=== PATIENT | male | born 1970 | race Caucasian/White ===

== ENCOUNTER 2020-08-20 13:54 | Inpatient (IN) ==
[2020-08-20] MEDS ORDERED: Piperacillin/Tazobac ADVAN 3.375 GM in NS 0.9% 100 ml BAG 100 ML IVPB ONE (14:23)
[2020-08-20] MEDS ORDERED: fentaNYL 100 mcg/2 ml 50 MCG/ML VIAL ONE (14:54)
[2020-08-20] MEDS ORDERED: Midazolam 10 mg/10 ml VIAL 1 mg/ml 10 ml VIAL (10 mg) ONE (14:54)
[2020-08-20 14:56] LABS: ABS Basophils 0.1 10^3/ul (0-0.2); ABS Lymphocytes 0.4 10^3/ul (1.0-4.8); ABS Monocytes 0.7 10^3/ul (0-0.8); ABS Neutrophils 14.4 10^3/ul (1.5-7.7); Hematocrit 39 % (42-52); Hemoglobin 13.5 g/dL (14.0-18.0); Lymphocyte % 2.6 %; Mean Corpuscular HGB Conc 35 g/dL (31-36); Mean Corpuscular Hemoglobin 35 pg (27-31); Mean Corpuscular Volume 101 fL (80-94); Mean Platelet Volume 10.1 fL (7.4-10.4); Nucleated Red Blood Cells % 0.1; Platelet Count 90 10^3/uL (150-450); Red Blood Count 3.83 10^6 /uL (4.18-5.48); Red Cell Distribution Width 14 % (10-15); White Blood Count 15.6 10^3/uL (3.5-10.8)
[2020-08-20] MEDS ORDERED: diPHENhydraMINE IV 50 MG/ML 1 ml VIAL (BENADRYL) ONE (14:56)
[2020-08-20] MEDS ORDERED: Octreotide Acetate 500 MCG in NS 0.9% 100 ml BAG 100 ML IV ONE (15:00)
[2020-08-20 15:02] LABS: INR 1.49 (0.82-1.09)
[2020-08-20 15:31] LABS: ALT 26 U/L (7-52); Albumin/Globulin Ratio 0.9 (1-3); Alkaline Phosphatase 88 U/L (34-104); BUN/Creatinine Ratio 25.7 (8-20); Blood Urea Nitrogen 28 mg/dL (6-24); CO2 Carbon Dioxide 22 mmol/L (22-32); Calcium 7.8 mg/dL (8.6-10.3); Chloride 111 mmol/L (101-111); EGFR African American 86.6 (>60); EGFR Non-African American 71.6 (>60); Globulin 3.3 g/dL (2-4); Glucose 97 mg/dL (70-100); Lipase 25 U/L (11.0-82.0); Sodium 138 mmol/L (135-145); Total Protein 6.3 g/dL (6.4-8.9)
[2020-08-20 15:44] LABS: Anion Gap 5 mmol/L (2-11)
[2020-08-20 16:30] LABS: Magnesium 1.5 mg/dL (1.9-2.7); Potassium Redraw 4.3 mmol/L (3.5-5.0)
[2020-08-20] MEDS ORDERED: Magnesium Sulfate 2 gm BAG 2 GM/50 ML BAG IVPB ONE (17:42)
[2020-08-20] MEDS ORDERED: Lactated Ringers 500 ml BAG 500 ML IV ONE (18:42)
[2020-08-20] MEDS ORDERED: Zosyn per Pharmacy NOTE FOLLOW UP SCH (19:00)
[2020-08-20] MEDS: Pantoprazole VIAL 40 MG VIAL IV SCH (20:22)
[2020-08-20] MEDS: Piperacillin/Tazobac ADVAN 3.375 GM in NS 0.9% 100 ml BAG 100 ML IV SCH (20:22)
[2020-08-21 00:14] LABS: Hematocrit 37 % (42-52); Hemoglobin 12.3 g/dL (14.0-18.0)
[2020-08-21] MEDS: Piperacillin/Tazobac ADVAN 3.375 GM in NS 0.9% 100 ml BAG 100 ML IV SCH ×3 (03:49→21:02)
[2020-08-21 05:56] LABS: ABS Eosinophils 0.1 10^3/ul (0-0.6); ABS Lymphocytes 1.3 10^3/ul (1.0-4.8); ABS Monocytes 0.9 10^3/ul (0-0.8); ABS Neutrophils 10.3 10^3/ul (1.5-7.7); Eosinophil % 0.5 %; Hematocrit 35 % (42-52); Hemoglobin 11.8 g/dL (14.0-18.0); Lymphocyte % 10.3 %; Mean Corpuscular HGB Conc 34 g/dL (31-36); Mean Corpuscular Hemoglobin 35 pg (27-31); Mean Corpuscular Volume 103 fL (80-94); Mean Platelet Volume 9.9 fL (7.4-10.4); Platelet Count 61 10^3/uL (150-450); Red Blood Count 3.36 10^6 /uL (4.18-5.48); Red Cell Distribution Width 14 % (10-15); White Blood Count 12.6 10^3/uL (3.5-10.8)
[2020-08-21 06:02] LABS: Albumin 2.4 g/dL (3.2-5.2); Albumin/Globulin Ratio 0.8 (1-3); Calcium 7.5 mg/dL (8.6-10.3); EGFR African American 75.4 (>60); EGFR Non-African American 62.3 (>60); Potassium 4.4 mmol/L (3.5-5.0); Total Protein 5.4 g/dL (6.4-8.9)
[2020-08-21 08:35] LABS: Magnesium 2.1 mg/dL (1.9-2.7)
[2020-08-21] MEDS: Pantoprazole VIAL 40 MG VIAL IV SCH ×2 (08:58→21:02)
[2020-08-21] MEDS: Octreotide Acetate 500 MCG in NS 0.9% 100 ml BAG 100 ML IV SCH ×2 (10:39)
[2020-08-21] MEDS: Nicotine PATCH 7 MG/24 HR PATCH TRANSDERM SCH (10:59)
[2020-08-21 12:12] LABS: Hematocrit 35 % (42-52); Hemoglobin 12.1 g/dL (14.0-18.0); Mean Corpuscular HGB Conc 35 g/dL (31-36); Mean Corpuscular Hemoglobin 36 pg (27-31); Mean Corpuscular Volume 103 fL (80-94); Mean Platelet Volume 9.8 fL (7.4-10.4); Platelet Count 77 10^3/uL (150-450); Red Cell Distribution Width 14 % (10-15); White Blood Count 11.8 10^3/uL (3.5-10.8)
[2020-08-21] MEDS: Lidocaine PATCH 5% PATCH TRANSDERM SCH (22:44)
[2020-08-22] MEDS: Octreotide Acetate 500 MCG in NS 0.9% 100 ml BAG 100 ML IV SCH ×3 (02:17→15:07)
[2020-08-22] MEDS: Piperacillin/Tazobac ADVAN 3.375 GM in NS 0.9% 100 ml BAG 100 ML IV SCH ×3 (04:13→20:23)
[2020-08-22 06:38] LABS: ABS Eosinophils 0.1 10^3/ul (0-0.6); ABS Lymphocytes 0.9 10^3/ul (1.0-4.8); ABS Monocytes 0.6 10^3/ul (0-0.8); ABS Neutrophils 4.2 10^3/ul (1.5-7.7); Eosinophil % 2.1 %; Hematocrit 32 % (42-52); Hemoglobin 11.3 g/dL (14.0-18.0); Lymphocyte % 15.7 %; Mean Corpuscular HGB Conc 36 g/dL (31-36); Mean Corpuscular Hemoglobin 37 pg (27-31); Mean Corpuscular Volume 103 fL (80-94); Mean Platelet Volume 9.9 fL (7.4-10.4); Platelet Count 55 10^3/uL (150-450); Red Cell Distribution Width 14 % (10-15); White Blood Count 5.9 10^3/uL (3.5-10.8)
[2020-08-22 06:49] LABS: Albumin 2.4 g/dL (3.2-5.2); Albumin/Globulin Ratio 0.8 (1-3); BUN/Creatinine Ratio 21.5 (8-20); Calcium 7.3 mg/dL (8.6-10.3); EGFR African American 56.5 (>60); EGFR Non-African American 46.7 (>60); Total Bilirubin 1.1 mg/dL (0.2-1.0); Total Protein 5.4 g/dL (6.4-8.9)
[2020-08-22] MEDS ORDERED: MACITENTAN 10 MG PO SCH (09:00)
[2020-08-22] MEDS ORDERED: Tadalafil 20 mg TAB (NF) PO SCH (09:00)
[2020-08-22] MEDS: Pantoprazole VIAL 40 MG VIAL IV SCH ×2 (09:11→20:24)
[2020-08-22] MEDS: CMCS:Epleronone 25 mg TAB (NF) PO SCH (09:17)
[2020-08-22] MEDS: Lidocaine PATCH 5% PATCH TRANSDERM SCH (09:52)
[2020-08-22] MEDS: Nicotine PATCH 7 MG/24 HR PATCH TRANSDERM SCH (09:53)
[2020-08-22] MEDS ORDERED: Lidocaine Patch REMOVE PATCH PATCH OFF SCH (21:00)
[2020-08-23] MEDS: Nicotine PATCH 7 MG/24 HR PATCH TRANSDERM SCH ×2 (00:04→09:12)
[2020-08-23] MEDS: Octreotide Acetate 500 MCG in NS 0.9% 100 ml BAG 100 ML IV SCH (02:00)
[2020-08-23] MEDS: Piperacillin/Tazobac ADVAN 3.375 GM in NS 0.9% 100 ml BAG 100 ML IV SCH (02:41)
[2020-08-23 07:34] LABS: Hematocrit 32 % (42-52); Hemoglobin 11.3 g/dL (14.0-18.0); Mean Corpuscular HGB Conc 35 g/dL (31-36); Mean Corpuscular Hemoglobin 36 pg (27-31); Mean Corpuscular Volume 102 fL (80-94); Red Blood Count 3.13 10^6 /uL (4.18-5.48); Red Cell Distribution Width 14 % (10-15); White Blood Count 4.6 10^3/uL (3.5-10.8)
[2020-08-23 07:38] LABS: ABS Eosinophils 0.1 10^3/ul (0-0.6); ABS Lymphocytes 0.9 10^3/ul (1.0-4.8); ABS Monocytes 0.6 10^3/ul (0-0.8); Eosinophil % 3.2 %; Mean Platelet Volume 9.5 fL (7.4-10.4)
[2020-08-23 07:39] LABS: Platelet Count 55 10^3/uL (150-450)
[2020-08-23 07:40] VITALS: BP 96/62
[2020-08-23 07:48] LABS: BUN/Creatinine Ratio 17.4 (8-20); Calcium 7.1 mg/dL (8.6-10.3); EGFR African American 62.8 (>60); EGFR Non-African American 51.9 (>60); Magnesium 1.8 mg/dL (1.9-2.7); Potassium 4.1 mmol/L (3.5-5.0)
[2020-08-23] MEDS: Pantoprazole VIAL 40 MG VIAL IV SCH (08:56)
[2020-08-23] MEDS: CMCS:Epleronone 25 mg TAB (NF) PO SCH (08:57)
[2020-08-23] MEDS: Lidocaine PATCH 5% PATCH TRANSDERM SCH (09:11)
== END 2020-08-23 11:10 | disposition home or self-care (01) | DRG 242 ==
LOC: ED 13:54 → ICU 15:41 → MED 08-21 11:16
PROVIDERS: ADMIT Internal Medicine; ATTEND Internal Medicine

== ENCOUNTER 2021-03-26 19:41 | Observation (INO) ==
[2021-03-26 20:22] LABS: ABS Eosinophils 0.1 10^3/ul (0-0.6); ABS Monocytes 0.5 10^3/ul (0-0.8); ABS Neutrophils 3.4 10^3/ul (1.5-7.7); Eosinophil % 1.9 %; Hematocrit 42 % (42-52); Hemoglobin 13.7 g/dL (14.0-18.0); Lymphocyte % 19.9 %; Mean Corpuscular HGB Conc 33 g/dL (31-36); Mean Corpuscular Hemoglobin 34 pg (27-31); Mean Corpuscular Volume 102 fL (80-94); Mean Platelet Volume 10.5 fL (7.4-10.4); Nucleated Red Blood Cells % 0.1; Platelet Count 53 10^3/uL (150-450); Red Blood Count 4.09 10^6 /uL (4.18-5.48); Red Cell Distribution Width 14 % (10-15); White Blood Count 5.1 10^3/uL (3.5-10.8)
[2021-03-26 20:50] LABS: Albumin 2.8 g/dL (3.2-5.2); Albumin/Globulin Ratio 0.8 (1-3); C Reactive Protein 36.07 mg/L (<8.01); Calcium 7.9 mg/dL (8.6-10.3); EGFR African American 67.4 (>60); EGFR Non-African American 55.7 (>60); Globulin 3.4 g/dL (2-4); Potassium 3.9 mmol/L (3.5-5.0); Total Bilirubin 1.3 mg/dL (0.2-1.0); Total Protein 6.2 g/dL (6.4-8.9)
[2021-03-26 21:55] LABS: Urine Appearance Clear; Urine Bilirubin Negative (Negative); Urine Blood 3+ (Negative); Urine Color Straw; Urine Glucose 3+(>=500 mg/dL) (Negative); Urine Ketones Negative (Negative); Urine Nitrite Negative (Negative); Urine Protein Negative (Negative); Urine Specific Gravity 1.021 (1.002-1.030); Urine Urobilinogen Negative (Negative)
[2021-03-26 21:56] LABS: Urine Bacteria Absent (Absent); Urine Red Blood Cell 2+(6-10/hpf) (Absent); Urine White Blood Cell Absent (Absent)
[2021-03-26 22:14] LABS: INR 1.44 (0.82-1.09)
[2021-03-26] MEDS ORDERED: Iodixanol (CONTRAST) 320 MG/ML 100 ML SDV IV ONE (22:18)
[2021-03-26] MEDS ORDERED: Dextrose 50% Syringe 50 ml 25 GM/50 ML SYRINGE IV PUSH PRN ×2 (23:18→23:29)
[2021-03-27] MEDS: Lactated Ringers 1000 ml BAG 1,000 ML IV SCH (00:05)
[2021-03-27 00:47] LABS: Magnesium 1.6 mg/dL (1.9-2.7)
[2021-03-27 01:02] LABS: TSH Ultra Thyroid Stim Horm 3.72 mcIU/mL (0.34-5.60)
[2021-03-27] MEDS: NS 0.9% 1000 ml BAG 1,000 ML IV SCH ×2 (01:28→10:52)
[2021-03-27] MEDS: cefTRIAXone 1 gm/50 mL NS BAG 1 GM/50 ML BAG IVPB SCH ×2 (01:29→20:11)
[2021-03-27 02:48] LABS: Hematocrit 38 % (42-52); Hemoglobin 12.9 g/dL (14.0-18.0); Mean Corpuscular HGB Conc 34 g/dL (31-36); Mean Corpuscular Hemoglobin 34 pg (27-31); Mean Corpuscular Volume 98 fL (80-94); Mean Platelet Volume 10.2 fL (7.4-10.4); Platelet Count 54 10^3/uL (150-450); Red Blood Count 3.81 10^6 /uL (4.18-5.48); Red Cell Distribution Width 14 % (10-15); White Blood Count 4.6 10^3/uL (3.5-10.8)
[2021-03-27 02:52] LABS: Calcium 7.9 mg/dL (8.6-10.3); EGFR African American 89.1 (>60); EGFR Non-African American 73.7 (>60); Potassium 3.1 mmol/L (3.5-5.0)
[2021-03-27] MEDS ORDERED: Magnesium Sulf 4 GM/100 ML IV 4,000 MG/100 ML BAG IVPB ONE (02:58)
[2021-03-27] MEDS ORDERED: Dextrose 50% Syringe 50 ml 25 GM/50 ML SYRINGE IV PUSH PRN (03:03)
[2021-03-27 03:19] LABS: Magnesium 1.6 mg/dL (1.9-2.7)
[2021-03-27] MEDS: Potassium Chlor 20 meq TAB.ER PO SCH ×3 (03:19→04:21)
[2021-03-27 06:25] LABS: Hematocrit 39 % (42-52); Hemoglobin 13.4 g/dL (14.0-18.0)
[2021-03-27 06:52] LABS: EGFR African American 99.9 (>60); EGFR Non-African American 82.6 (>60); Potassium 3.1 mmol/L (3.5-5.0)
[2021-03-27] MEDS: PTO:Tadalafil 20 mg TAB (NF) PO SCH (07:14)
[2021-03-27] MEDS ORDERED: CMCS:Epleronone 25 mg TAB (NF) PO SCH (09:00)
[2021-03-27] MEDS: KCL 10 MEQ/50 ML IVPREMIX 10 MEQ/50 ML BAG IV SCH ×4 (12:00→15:38)
[2021-03-27 14:31] LABS: Calcium 7.6 mg/dL (8.6-10.3); EGFR African American 97.6 (>60); EGFR Non-African American 80.6 (>60); Potassium 3.5 mmol/L (3.5-5.0)
[2021-03-27] MEDS ORDERED: Lorazepam PYXIS KEY PRN (16:36)
[2021-03-27] MEDS ORDERED: LORazepam 2 mg VIAL 1 ml IV PUSH ONE (16:36)
[2021-03-27] MEDS: Nicotine PATCH 14 MG/24 HR PATCH TRANSDERM SCH (16:36)
[2021-03-27] MEDS ORDERED: Nicotine GUM 4MG FRUIT FLAVOR PO PRN (16:37)
[2021-03-28] MEDS: metroNIDAZOLE IV 500 MG/100ML 500 MG/100 ML BAG IVPB SCH ×2 (00:08→10:19)
[2021-03-28] MEDS: NS 0.9% 1000 ml BAG 1,000 ML IV SCH (00:08)
[2021-03-28 06:18] LABS: Hematocrit 40 % (42-52); Hemoglobin 13.8 g/dL (14.0-18.0); Mean Corpuscular HGB Conc 35 g/dL (31-36); Mean Corpuscular Hemoglobin 35 pg (27-31); Mean Corpuscular Volume 100 fL (80-94); Mean Platelet Volume 10.1 fL (7.4-10.4); Platelet Count 52 10^3/uL (150-450); Red Cell Distribution Width 14 % (10-15)
[2021-03-28 06:31] LABS: Calcium 7.6 mg/dL (8.6-10.3); EGFR African American 93.2 (>60); HDL Cholesterol 23.3 mg/dL; Magnesium 1.6 mg/dL (1.9-2.7); Potassium 3.6 mmol/L (3.5-5.0)
[2021-03-28] MEDS ORDERED: Magnesium Sulfate 2 gm BAG 2 GM/50 ML BAG IVPB ONE (08:12)
[2021-03-28] MEDS: Nicotine PATCH 14 MG/24 HR PATCH TRANSDERM SCH (09:17)
[2021-03-28] MEDS: PTO:Tadalafil 20 mg TAB (NF) PO SCH (10:32)
[2021-03-28 15:35] VITALS: BP 118/76
[2021-04-03 13:27] LABS: Anti GAD 65 Antibody 0.02 nmol/L (<= 0.02)
== END 2021-03-28 17:40 | disposition home or self-care (01) ==
LOC: MED 19:41 → ED 19:41 → MED 03-27 00:23
PROVIDERS: ADMIT Pediatrics; ATTEND Internal Medicine

== ENCOUNTER 2021-11-27 20:20 | Observation (INO) ==
[2021-11-28] MEDS ORDERED: cefTRIAXone 1 gm/50 mL NS BAG 1 GM/50 ML BAG IV ONE ×2 (00:17→01:11)
[2021-11-28] MEDS ORDERED: Iodixanol (CONTRAST) 320 MG/ML 100 ML SDV IV ONE (03:18)
[2021-11-28] MEDS ORDERED: Dextrose 50% Syringe 50 ml 25 GM/50 ML SYRINGE IV PUSH PRN (03:18)
[2021-11-28 04:40] LABS: ABS Eosinophils 0.1 10^3/ul (0-0.6); ABS Lymphocytes 1.1 10^3/ul (1.0-4.8); ABS Monocytes 1.2 10^3/ul (0-0.8); ABS Neutrophils 4.8 10^3/ul (1.5-7.7); Eosinophil % 1.7 %; Hematocrit 39 % (42-52); Hemoglobin 13.3 g/dL (14.0-18.0); Lymphocyte % 15.3 %; Mean Corpuscular HGB Conc 34 g/dL (31-36); Mean Corpuscular Hemoglobin 34 pg (27-31); Mean Corpuscular Volume 100 fL (80-94); Mean Platelet Volume 8.8 fL (7.4-10.4); Platelet Count 57 10^3/uL (150-450); Red Blood Count 3.88 10^6 /uL (4.18-5.48); Red Cell Distribution Width 15 % (10-15); White Blood Count 7.2 10^3/uL (3.5-10.8)
[2021-11-28 04:42] LABS: INR 1.57 (0.86-1.15)
[2021-11-28 04:52] LABS: Albumin 2.4 g/dL (3.2-5.2); Albumin/Globulin Ratio 0.7 (1-3); C Reactive Protein 97.58 mg/L (<8.01); Calcium 7.5 mg/dL (8.6-10.3); Globulin 3.3 g/dL (2-4); Potassium 3.2 mmol/L (3.5-5.0); Total Bilirubin 2.1 mg/dL (0.2-1.0); Total Protein 5.7 g/dL (6.4-8.9); eGFR CKD-EPI 78.2 (>60)
[2021-11-28 04:54] LABS: Troponin I 0.01 ng/mL (<0.03)
[2021-11-28] MEDS ORDERED: Magnesium Sulfate IV 3 GM in NS 0.9% 100 ml BAG 100 ML IVPB ONE (05:10)
[2021-11-28] MEDS ORDERED: Potassium Chlor 20 meq TAB.ER PO ONE (05:10)
[2021-11-28] MEDS: CMCS:Epleronone 25 mg TAB (NF) PO SCH (08:52)
[2021-11-28] MEDS: Nicotine PATCH 14 MG/24 HR PATCH TRANSDERM SCH (08:52)
[2021-11-28] MEDS: Lactulose 30 ml UDC PO SCH (08:53)
[2021-11-28] MEDS ORDERED: TADALAFIL 20 MG PO SCH (09:00)
[2021-11-29] MEDS ORDERED: cefTRIAXone 2 GM ADDV.VIAL 2 GM in NS 0.9% 100 ml BAG 100 ML IV SCH (01:00)
[2021-11-29] MEDS ORDERED: Potassium Chlor 20 meq TAB.ER PO ONE (07:23)
[2021-11-29 07:58] VITALS: BP 93/53
[2021-11-29] MEDS: Lactulose 30 ml UDC PO SCH (08:19)
[2021-11-29] MEDS: Nicotine PATCH 14 MG/24 HR PATCH TRANSDERM SCH (08:19)
[2021-11-29] MEDS ORDERED: PTO:Tadalafil 20 mg TAB (NF) PO SCH (09:00)
[2021-11-29] MEDS: CMCS:Epleronone 25 mg TAB (NF) PO SCH (09:31)
== END 2021-11-29 09:40 | disposition home or self-care (01) ==
LOC: ED 20:20 → SUATTDRO 11-28 02:32 → EDHOLD 11-28 02:32 → INTOOBSV 11-28 02:32 → MED 11-28 13:19
PROVIDERS: ADMIT Internal Medicine; ATTEND Student in an Organized Health Care Education/Training Program

== ENCOUNTER 2022-02-02 10:12 | Inpatient (IN) ==
[2022-02-02] MEDS ORDERED: Morphine 4 MG/ML VIAL (1 ml) IV ONE (10:48)
[2022-02-02] MEDS ORDERED: Ondansetron 4 mg VIAL 2 MG/ML 2 ml VIAL IV ONE (11:02)
[2022-02-02 11:11] LABS: ABS Eosinophils 0.1 10^3/ul (0-0.6); ABS Lymphocytes 1.1 10^3/ul (1.0-4.8); ABS Monocytes 0.7 10^3/ul (0-0.8); ABS Neutrophils 3.8 10^3/ul (1.5-7.7); Eosinophil % 1.2 %; Hematocrit 42 % (42-52); Hemoglobin 14.5 g/dL (14.0-18.0); Mean Corpuscular HGB Conc 35 g/dL (31-36); Mean Corpuscular Hemoglobin 34 pg (27-31); Mean Corpuscular Volume 98 fL (80-94); Mean Platelet Volume 8.8 fL (7.4-10.4); Nucleated Red Blood Cells % 0.1; Platelet Count 63 10^3/uL (150-450); Red Blood Count 4.26 10^6 /uL (4.18-5.48); Red Cell Distribution Width 14 % (10-15); White Blood Count 5.7 10^3/uL (3.5-10.8)
[2022-02-02 11:16] LABS: INR 1.31 (0.86-1.15)
[2022-02-02 11:43] LABS: Albumin 2.7 g/dL (3.2-5.2); Albumin/Globulin Ratio 0.8 (1-3); Calcium 8.2 mg/dL (8.6-10.3); Globulin 3.5 g/dL (2-4); Potassium 3.6 mmol/L (3.5-5.0); Total Bilirubin 2.2 mg/dL (0.2-1.0); Total Protein 6.2 g/dL (6.4-8.9); eGFR CKD-EPI 68.6 (>60)
[2022-02-02] MEDS ORDERED: Epleronone 25 mg TAB (NF) PO SCH ×2 (15:00→21:00)
[2022-02-02] MEDS ORDERED: Lactulose 30 ml UDC PO ONE (15:43)
[2022-02-02] MEDS ORDERED: Pantoprazole VIAL 40 MG VIAL IV SCH (16:00)
[2022-02-02] MEDS ORDERED: Lactulose 30 ml UDC PO SCH (17:00)
[2022-02-02] MEDS ORDERED: Dextrose 50% Syringe 50 ml 25 GM/50 ML SYRINGE IV PUSH PRN ×2 (17:57→18:30)
[2022-02-02] MEDS: Nicotine PATCH 7 MG/24 HR PATCH TRANSDERM SCH (22:31)
[2022-02-02] MEDS: Lactulose 30 ml UDC PO SCH (22:38)
[2022-02-03] MEDS ORDERED: Nicotine GUM 4MG FRUIT FLAVOR PO PRN (07:02)
[2022-02-03] MEDS: Lactulose 30 ml UDC PO SCH (08:02)
[2022-02-03] MEDS: Nicotine PATCH 7 MG/24 HR PATCH TRANSDERM SCH (08:02)
[2022-02-03] MEDS ORDERED: AMBRISENTAN 5 MG PO SCH (09:00)
[2022-02-03 09:51] VITALS: BP 108/54
== END 2022-02-03 10:55 | disposition left against medical advice (07) | DRG 279 ==
LOC: ED 10:12 → SUATTDRO 14:25 → EDHOLD 14:25 → MED 17:28
PROVIDERS: ADMIT Internal Medicine; ATTEND Student in an Organized Health Care Education/Training Program

== ENCOUNTER 2022-09-30 11:23 | Observation (INO) ==
[2022-09-30 11:44] LABS: ABS Basophils 0.1 10^3/ul (0-0.2); ABS Eosinophils 0.1 10^3/ul (0-0.6); ABS Lymphocytes 0.8 10^3/ul (1.0-4.8); ABS Monocytes 0.6 10^3/ul (0-0.8); Eosinophil % 2.3 %; Hematocrit 24 % (42-52); Hemoglobin 7.5 g/dL (14.0-18.0); Lymphocyte % 17.3 %; Mean Corpuscular HGB Conc 32 g/dL (31-36); Mean Corpuscular Hemoglobin 27 pg (27-31); Mean Corpuscular Volume 87 fL (80-94); Mean Platelet Volume 8.5 fL (7.4-10.4); Nucleated Red Blood Cells % 0.2; Platelet Count 70 10^3/uL (150-450); Red Blood Count 2.73 10^6 /uL (4.18-5.48); Red Cell Distribution Width 17 % (10-15); White Blood Count 4.6 10^3/uL (3.5-10.8)
[2022-09-30 11:49] LABS: INR 1.58 (0.89-1.11)
[2022-09-30 12:22] LABS: Albumin 3.2 g/dL (3.2-5.2); Calcium 8.2 mg/dL (8.6-10.3); Globulin 3.2 g/dL (2-4); Potassium 4.2 mmol/L (3.5-5.0); Total Bilirubin 1.5 mg/dL (0.2-1.0); Total Protein 6.4 g/dL (6.4-8.9); eGFR CKD-EPI 58.5 (>60)
[2022-09-30 13:15] LABS: High Sensitivity Troponin 1 Hr 12 pg/mL (<20)
[2022-09-30] MEDS ORDERED: Lactulose 30 ml UDC PO ONE (14:11)
[2022-09-30] MEDS ORDERED: Dextrose 50% Syringe 50 ml 25 GM/50 ML SYRINGE IV PUSH PRN (16:37)
[2022-09-30] MEDS ORDERED: Albuterol/Ipratropium RESP(NF) MDI (Combivent Respimat) INH SCH (17:00)
[2022-09-30] MEDS ORDERED: Albuterol/Ipratropium NEB.SOL (2.5/0.5 MG) 3 ML NEB.SOLN INH PRN (17:10)
[2022-09-30 17:42] LABS: Urine Benzodiazepine Screen None Detected (None Detect); Urine Cannabinoids Screen None Detected (None Detect); Urine Opiates Screen None Detected (None Detect)
[2022-09-30 18:05] LABS: Alcohol, S < 13 mg/dL (<13); LDH 266 U/L (140-271)
[2022-09-30] MEDS: Lactulose 30 ml UDC PO SCH (20:27)
[2022-09-30] MEDS ORDERED: Morphine 2 MG/ML SYRINGE IV ONE (22:25)
[2022-10-01] MEDS ORDERED: Nicotine GUM 2MG FRUIT FLAVOR PO PRN (05:51)
[2022-10-01] MEDS: Nicotine PATCH 14 MG/24 HR PATCH TRANSDERM SCH ×2 (06:39→09:13)
[2022-10-01] MEDS ORDERED: Tadalafil 20 mg TAB (NF) PO SCH (09:00)
[2022-10-01] MEDS: Lactulose 30 ml UDC PO SCH (09:23)
[2022-10-01 10:27] LABS: ABS Eosinophils 0.1 10^3/ul (0-0.6); ABS Lymphocytes 0.8 10^3/ul (1.0-4.8); ABS Monocytes 0.4 10^3/ul (0-0.8); ABS Neutrophils 2.3 10^3/ul (1.5-7.7); Eosinophil % 3.4 %; Hematocrit 24 % (42-52); Hemoglobin 7.5 g/dL (14.0-18.0); Lymphocyte % 22.1 %; Mean Corpuscular HGB Conc 32 g/dL (31-36); Mean Corpuscular Hemoglobin 28 pg (27-31); Mean Corpuscular Volume 87 fL (80-94); Mean Platelet Volume 8.2 fL (7.4-10.4); Nucleated Red Blood Cells % 0.1; Platelet Count 66 10^3/uL (150-450); Red Blood Count 2.71 10^6 /uL (4.18-5.48); Red Cell Distribution Width 18 % (10-15); White Blood Count 3.6 10^3/uL (3.5-10.8)
[2022-10-01 11:08] VITALS: BP 108/62
[2022-10-01 11:27] LABS: Albumin 3.1 g/dL (3.2-5.2); Globulin 3.1 g/dL (2-4); Total Bilirubin 1.8 mg/dL (0.2-1.0); Total Protein 6.2 g/dL (6.4-8.9)
== END 2022-10-01 16:00 | disposition home or self-care (01) ==
LOC: ED 11:23 → EDHOLD 11:23 → MED 21:45
PROVIDERS: ADMIT Internal Medicine; ATTEND Internal Medicine

== ENCOUNTER 2022-11-28 14:38 | Inpatient (IN) ==
[2022-11-28 15:08] LABS: INR 1.59 (0.88-1.18)
[2022-11-28 15:16] LABS: Hematocrit 33 % (42-52); Hemoglobin 10.4 g/dL (14.0-18.0); Mean Corpuscular HGB Conc 32 g/dL (31-36); Mean Corpuscular Hemoglobin 25 pg (27-31); Mean Corpuscular Volume 78 fL (80-94); Red Blood Count 4.18 10^6 /uL (4.18-5.48); Red Cell Distribution Width 25 % (10-15); White Blood Count 3.7 10^3/uL (3.5-10.8)
[2022-11-28 15:48] LABS: Anisocytosis 2+; Polychromasia 1+
[2022-11-28 15:49] LABS: Platelet Morphology Large
[2022-11-28 15:51] LABS: ABS Eosinophils 0.1 10^3/ul (0-0.6); ABS Lymphocytes 1.1 10^3/ul (1.0-4.8); ABS Monocytes 0.5 10^3/ul (0-0.8); Eosinophil % 1.9 %; Lymphocyte % 30.7 %; Nucleated Red Blood Cells % 0.2; Platelet Count 66 10^3/uL (150-450)
[2022-11-28 16:01] LABS: Albumin 2.8 g/dL (3.2-5.2); Albumin/Globulin Ratio 0.8 (1-3); Calcium 7.8 mg/dL (8.6-10.3); Creatinine, Serum 1.01 mg/dL (0.67-1.17); Globulin 3.7 g/dL (2-4); Potassium 3.1 mmol/L (3.5-5.0); Total Bilirubin 1.8 mg/dL (0.2-1.0); Total Protein 6.5 g/dL (6.4-8.9); eGFR CKD-EPI 88.9 (>60)
[2022-11-28 16:18] LABS: Magnesium 1.9 mg/dL (1.9-2.7)
[2022-11-28 16:51] LABS: High Sensitivity Troponin 1 Hr 5 pg/mL (<20)
[2022-11-28 17:37] LABS: Urine Appearance Clear; Urine Bacteria Absent (Absent); Urine Bilirubin Negative (Negative); Urine Blood 2+ (Negative); Urine Color Straw; Urine Glucose Negative (Negative); Urine Ketones Negative (Negative); Urine Nitrite Negative (Negative); Urine Protein Negative (Negative); Urine Red Blood Cell 2+(6-10/hpf) (Absent); Urine Specific Gravity 1.004 (1.002-1.030); Urine Urobilinogen Negative (Negative); Urine White Blood Cell Absent (Absent)
[2022-11-28] MEDS ORDERED: Potassium Chlor 20 meq TAB.ER PO ONE (19:12)
[2022-11-28] MEDS ORDERED: Tadalafil 20 mg TAB (NF) PO SCH ×2 (21:00→22:02)
[2022-11-28] MEDS ORDERED: Nicotine PATCH 7 MG/24 HR PATCH TRANSDERM SCH (23:00)
[2022-11-29 06:46] LABS: Hematocrit 31 % (42-52); Hemoglobin 9.8 g/dL (14.0-18.0); Mean Corpuscular HGB Conc 31 g/dL (31-36); Mean Corpuscular Hemoglobin 25 pg (27-31); Mean Corpuscular Volume 79 fL (80-94); Red Blood Count 3.94 10^6 /uL (4.18-5.48); Red Cell Distribution Width 25 % (10-15); White Blood Count 3.6 10^3/uL (3.5-10.8)
[2022-11-29 07:23] LABS: Albumin 2.7 g/dL (3.2-5.2); Albumin/Globulin Ratio 0.8 (1-3); Calcium 7.6 mg/dL (8.6-10.3); Creatinine, Serum 1.07 mg/dL (0.67-1.17); Globulin 3.4 g/dL (2-4); Potassium 3.2 mmol/L (3.5-5.0); Total Bilirubin 1.6 mg/dL (0.2-1.0); Total Protein 6.1 g/dL (6.4-8.9)
[2022-11-29 07:24] LABS: ABS Eosinophils 0.1 10^3/ul (0-0.6); ABS Lymphocytes 0.9 10^3/ul (1.0-4.8); ABS Monocytes 0.4 10^3/ul (0-0.8); ABS Neutrophils 2.2 10^3/ul (1.5-7.7); Eosinophil % 2.9 %; Lymphocyte % 24.6 %; Mean Platelet Volume 8.6 fL (7.4-10.4); Platelet Count 52 10^3/uL (150-450)
[2022-11-29 07:35] VITALS: BP 106/70
[2022-11-29] MEDS ORDERED: Potassium Chlor 20 meq TAB.ER PO ONE (08:13)
[2022-11-29 08:33] LABS: Magnesium 1.7 mg/dL (1.9-2.7)
[2022-11-29] MEDS ORDERED: Magnesium Sulfate 2 gm BAG 2 GM/50 ML BAG IVPB ONE (08:52)
[2022-11-29] MEDS ORDERED: CMC:Epleronone 25 mg TAB (NF) PO SCH (09:00)
== END 2022-11-29 11:50 | disposition home or self-care (01) | DRG 280 ==
LOC: ED 14:38 → EDHOLD 18:36 → MED 21:47
PROVIDERS: ADMIT Internal Medicine; ATTEND Internal Medicine

== ENCOUNTER 2023-01-25 01:42 | Inpatient (IN) ==
[2023-01-25 02:59] LABS: INR 1.71 (0.88-1.18)
[2023-01-25 03:00] LABS: Hematocrit 28 % (42-52); Hemoglobin 9.1 g/dL (14.0-18.0); Mean Corpuscular HGB Conc 33 g/dL (31-36); Mean Corpuscular Hemoglobin 26 pg (27-31); Mean Corpuscular Volume 79 fL (80-94); Red Blood Count 3.47 10^6 /uL (4.18-5.48); Red Cell Distribution Width 21 % (10-15); White Blood Count 3.2 10^3/uL (3.5-10.8)
[2023-01-25 03:01] LABS: ABS Eosinophils 0.1 10^3/ul (0-0.6); ABS Lymphocytes 0.8 10^3/ul (1.0-4.8); ABS Monocytes 0.4 10^3/ul (0-0.8); ABS Neutrophils 1.9 10^3/ul (1.5-7.7); Eosinophil % 2.9 %; Lymphocyte % 24.8 %; Nucleated Red Blood Cells % 0.1
[2023-01-25 03:25] LABS: Albumin 2.4 g/dL (3.2-5.2); Albumin/Globulin Ratio 0.8 (1-3); Calcium 7.8 mg/dL (8.6-10.3); Creatinine, Serum 1.25 mg/dL (0.67-1.17); Magnesium 1.8 mg/dL (1.9-2.7); Potassium 3.4 mmol/L (3.5-5.0); Total Protein 5.4 g/dL (6.4-8.9); eGFR CKD-EPI 68.9 (>60)
[2023-01-25 03:57] LABS: High Sensitivity Troponin 1 Hr 7 pg/mL (<20)
[2023-01-25 04:32] LABS: Microcytosis 1+; Polychromasia 1+; Target Cells 2+
[2023-01-25 04:34] LABS: Mean Platelet Volume 8.9 fL (7.4-10.4); Platelet Count 53 10^3/uL (150-450)
[2023-01-25] MEDS ORDERED: Magnesium Sulfate 2 gm BAG 2 GM/50 ML BAG IVPB ONE (05:54)
[2023-01-25] MEDS ORDERED: Dextrose 50% Syringe 50 ml 25 GM/50 ML SYRINGE IV PUSH PRN (06:26)
[2023-01-25] MEDS: KCL 20 MEQ/100 ML IVPREMIX 20 MEQ/100 ML BAG IV SCH ×3 (08:07→17:19)
[2023-01-25] MEDS ORDERED: Potassium Chloride LIQUID 20 MEQ/15 ML LIQUID PO SCH (09:00)
[2023-01-25] MEDS ORDERED: Lorazepam PYXIS KEY PRN ×9 (09:25→23:11)
[2023-01-25] MEDS ORDERED: LORazepam 2 mg VIAL 1 ml IV PUSH ONE ×4 (09:25→10:29)
[2023-01-25] MEDS ORDERED: LORazepam 2 mg VIAL 1 ml ONE ×2 (09:27→10:29)
[2023-01-25] MEDS: Nicotine PATCH 14 MG/24 HR PATCH TRANSDERM SCH (09:51)
[2023-01-25] MEDS ORDERED: LORazepam 2 mg VIAL 1 ml IV PUSH PRN ×3 (09:52→10:38)
[2023-01-25] MEDS: Pantoprazole VIAL 40 MG VIAL IV SCH (09:53)
[2023-01-25] MEDS: CMC:Epleronone 25 mg TAB (NF) PO SCH (09:57)
[2023-01-25] MEDS: Polyethylene Glycol 3350 17 GM PACKET PO SCH ×2 (09:57→22:02)
[2023-01-25] MEDS: Lactulose 30 ml UDC PO SCH ×2 (09:57→17:20)
[2023-01-25] MEDS: Albuterol/Ipratropium NEB.SOL (2.5/0.5 MG) 3 ML NEB.SOLN INH SCH ×3 (10:54→20:01)
[2023-01-25 11:00] LABS: Urine Appearance Clear; Urine Bilirubin Negative (Negative); Urine Blood 2+ (Negative); Urine Color Yellow; Urine Glucose Negative (Negative); Urine Ketones Negative (Negative); Urine Nitrite Negative (Negative); Urine Protein Negative (Negative); Urine Specific Gravity 1.009 (1.002-1.030); Urine Urobilinogen Negative (Negative)
[2023-01-25 11:03] LABS: Urine Bacteria Absent (Absent); Urine Red Blood Cell 2+(6-10/hpf) (Absent); Urine White Blood Cell Trace(0-5/hpf) (Absent)
[2023-01-25] MEDS ORDERED: NS 0.9% 1000 ml BAG 1,000 ML IV SCH (13:30)
[2023-01-25] MEDS: Lactulose 30 ml UDC NG TUBE SCH ×2 (18:00→21:57)
[2023-01-25] MEDS: LORazepam 2 mg VIAL 1 ml IV PUSH PRN ×3 (19:17→23:19)
[2023-01-25] MEDS: Tadalafil 20 mg TAB (NF) PO SCH (23:52)
[2023-01-26] MEDS: Albuterol/Ipratropium NEB.SOL (2.5/0.5 MG) 3 ML NEB.SOLN INH SCH ×4 (00:22→19:12)
[2023-01-26] MEDS: LORazepam 2 mg VIAL 1 ml IV PUSH PRN ×2 (02:40→03:08)
[2023-01-26] MEDS: Lactulose 300 ML for PR 200 GM/300 ML BTL PR SCH ×5 (03:34→13:02)
[2023-01-26] MEDS ORDERED: Lorazepam PYXIS KEY PRN ×2 (05:01→10:20)
[2023-01-26] MEDS ORDERED: LORazepam 2 mg VIAL 1 ml IV PUSH ONE (05:01)
[2023-01-26] MEDS ORDERED: Haloperidol 5 mg/ml SDV IV/IM 5 MG/ML AMP IV SLOW PU ONE ×2 (05:19→12:12)
[2023-01-26 07:11] LABS: ABS Eosinophils 0.1 10^3/ul (0-0.6); ABS Lymphocytes 0.7 10^3/ul (1.0-4.8); ABS Monocytes 0.5 10^3/ul (0-0.8); ABS Neutrophils 2.6 10^3/ul (1.5-7.7); Calcium 7.4 mg/dL (8.6-10.3); Creatinine, Serum 1.21 mg/dL (0.67-1.17); Eosinophil % 1.3 %; Hematocrit 29 % (42-52); Hemoglobin 9.7 g/dL (14.0-18.0); Lymphocyte % 17.2 %; Magnesium 1.9 mg/dL (1.9-2.7); Mean Corpuscular HGB Conc 33 g/dL (31-36); Mean Corpuscular Hemoglobin 27 pg (27-31); Mean Corpuscular Volume 82 fL (80-94); Nucleated Red Blood Cells % 0.2; Platelet Count 51 10^3/uL (150-450); Potassium 3.2 mmol/L (3.5-5.0); Red Blood Count 3.58 10^6 /uL (4.18-5.48); Red Cell Distribution Width 21 % (10-15); White Blood Count 3.8 10^3/uL (3.5-10.8); eGFR CKD-EPI 71.6 (>60)
[2023-01-26] MEDS: KCL 20 MEQ/100 ML IVPREMIX 20 MEQ/100 ML BAG IV SCH ×4 (09:26→17:22)
[2023-01-26] MEDS: Pantoprazole VIAL 40 MG VIAL IV SCH (09:38)
[2023-01-26] MEDS ORDERED: Haloperidol 5 mg/ml SDV IV/IM 5 MG/ML AMP IM ONE ×2 (10:19)
[2023-01-26] MEDS ORDERED: Haloperidol 5 mg/ml SDV IV/IM 5 MG/ML AMP ONE ×2 (10:21→12:00)
[2023-01-26] MEDS: LORazepam 2 mg VIAL 1 ml IV PUSH ONE ×2 (10:24→11:12)
[2023-01-26] MEDS: Lactulose 30 ml UDC PO SCH ×4 (10:30→20:17)
[2023-01-26] MEDS: Polyethylene Glycol 3350 17 GM PACKET PO SCH ×2 (11:09→20:21)
[2023-01-26] MEDS: CMC:Epleronone 25 mg TAB (NF) PO SCH (11:09)
[2023-01-26] MEDS: Nicotine PATCH 14 MG/24 HR PATCH TRANSDERM SCH (11:10)
[2023-01-26] MEDS ORDERED: Dexmedetomidine 1,000 MCG in NS 0.9% 250 ml 240 ML IV SCH (12:00)
[2023-01-26 12:10] LABS: Direct Bilirubin 0.6 mg/dL (0.03-0.18); Indirect Bilirubin 1.9 mg/dL (0.3-1.0); Total Bilirubin 2.5 mg/dL (0.2-1.0)
[2023-01-26] MEDS ORDERED: Haloperidol 5 mg/ml SDV IV/IM 5 MG/ML AMP IV SLOW PU PRN ×2 (12:11)
[2023-01-26] MEDS ORDERED: Magnesium Sulfate IV 1GM/100ML 1 GM/100 ML BAG IV ONE (12:13)
[2023-01-26 12:46] LABS: INR 1.68 (0.88-1.18)
[2023-01-26] MEDS ORDERED: Lactulose 300 ML for PR 200 GM/300 ML BTL PR PRN (13:40)
[2023-01-26] MEDS: D5W 1/2 NS 1000 ml BAG 1,000 ML IV SCH (15:54)
[2023-01-26] MEDS: Tadalafil 20 mg TAB (NF) PO SCH (20:22)
[2023-01-26 22:38] LABS: Calcium 7.7 mg/dL (8.6-10.3); Creatinine, Serum 1.2 mg/dL (0.67-1.17); Magnesium 2.6 mg/dL (1.9-2.7); Potassium 4.5 mmol/L (3.5-5.0); eGFR CKD-EPI 72.3 (>60)
[2023-01-27] MEDS: Albuterol/Ipratropium NEB.SOL (2.5/0.5 MG) 3 ML NEB.SOLN INH SCH ×3 (01:01→13:19)
[2023-01-27] MEDS: D5W 1/2 NS 1000 ml BAG 1,000 ML IV SCH (01:19)
[2023-01-27 04:22] LABS: ABS Eosinophils 0.1 10^3/ul (0-0.6); ABS Lymphocytes 0.5 10^3/ul (1.0-4.8); ABS Monocytes 0.4 10^3/ul (0-0.8); ABS Neutrophils 2.3 10^3/ul (1.5-7.7); Eosinophil % 2.7 %; Hematocrit 31 % (42-52); Hemoglobin 9.6 g/dL (14.0-18.0); Lymphocyte % 16.2 %; Mean Corpuscular HGB Conc 31 g/dL (31-36); Mean Corpuscular Hemoglobin 26 pg (27-31); Mean Corpuscular Volume 84 fL (80-94); Nucleated Red Blood Cells % 0.1; Platelet Count 45 10^3/uL (150-450); Red Blood Count 3.63 10^6 /uL (4.18-5.48); Red Cell Distribution Width 21 % (10-15); White Blood Count 3.4 10^3/uL (3.5-10.8)
[2023-01-27 04:44] LABS: Albumin 2.3 g/dL (3.2-5.2); Albumin/Globulin Ratio 0.7 (1-3); Calcium 7.5 mg/dL (8.6-10.3); Creatinine, Serum 1.17 mg/dL (0.67-1.17); Globulin 3.1 g/dL (2-4); Magnesium 2.5 mg/dL (1.9-2.7); Potassium 4.2 mmol/L (3.5-5.0); Total Bilirubin 1.5 mg/dL (0.2-1.0); Total Protein 5.4 g/dL (6.4-8.9); eGFR CKD-EPI 74.5 (>60)
[2023-01-27 05:23] LABS: INR 1.6 (0.88-1.18)
[2023-01-27] MEDS ORDERED: D5W 1000 ml BAG 1,000 ML IV SCH (08:00)
[2023-01-27] MEDS: Lactulose 30 ml UDC PO SCH ×2 (08:55→12:25)
[2023-01-27] MEDS: Nicotine PATCH 14 MG/24 HR PATCH TRANSDERM SCH (08:55)
[2023-01-27] MEDS: Polyethylene Glycol 3350 17 GM PACKET PO SCH (08:55)
[2023-01-27] MEDS: Pantoprazole VIAL 40 MG VIAL IV SCH (08:55)
[2023-01-27 13:43] LABS: Calcium 7.2 mg/dL (8.6-10.3); Creatinine, Serum 1.11 mg/dL (0.67-1.17); Potassium 3.7 mmol/L (3.5-5.0); eGFR CKD-EPI 79.4 (>60)
[2023-01-27] MEDS ORDERED: Potassium Chloride LIQUID 20 MEQ/15 ML LIQUID PO ONE (15:07)
[2023-01-27] MEDS ORDERED: Lactulose 30 ml UDC PO SCH (17:00)
[2023-01-27] MEDS ORDERED: D5W 1/2 NS 1000 ml BAG 1,000 ML IV SCH (17:00)
[2023-01-27 17:52] VITALS: BP 105/64
[2023-01-27] MEDS ORDERED: Polyethylene Glycol 3350 17 GM PACKET PO SCH (21:00)
== END 2023-01-27 18:32 | disposition left against medical advice (07) | DRG 279 ==
LOC: ED 01:42 → EDHOLD 05:44 → SUATTDRO 05:44 → EDHOLD 15:01 → MED 15:33 → ICU 01-26 11:58
PROVIDERS: ADMIT Internal Medicine; ATTEND Internal Medicine

== ENCOUNTER 2023-03-28 09:52 | Inpatient (IN) ==
[2023-03-28 10:57] LABS: ABS Lymphocytes 0.8 10^3/uL (1.0-4.8); ABS Monocytes 0.6 10^3/uL (0.0-1.1); Eosinophil % 0.9 %; Hematocrit 36.5 % (38-53); Hemoglobin 12.3 g/dL (13.2-16.3); Lymphocyte % 17.4 %; Mean Corpuscular Hemoglobin 30.2 pg (27-33); Mean Corpuscular Hgb Conc 33.6 g/dL (31-36); Mean Corpuscular Volume 89.8 fL (80-97); Mean Platelet Volume 8.2 fL (7.5-11.2); Nucleated Red Blood Cells % 0.1 /100 WBC (0.0-0.4); Platelet Count 75 10^3/uL (150-450); Red Blood Count 4.07 10^6/uL (4.06-5.63); Red Cell Distribution Width 24.3 % (12-17); White Blood Count 4.5 10^3/uL (3.6-10.2)
[2023-03-28 11:02] LABS: Urine Appearance Clear; Urine Bilirubin Negative (Negative); Urine Blood 1+ (Negative); Urine Color Straw; Urine Glucose Negative (Negative); Urine Ketones Negative (Negative); Urine Nitrite Negative (Negative); Urine Protein Negative (Negative); Urine Specific Gravity 1.005 (1.002-1.030); Urine Urobilinogen Negative (Negative)
[2023-03-28 11:04] LABS: Activated Partial Thrombo Time 37.2 seconds (26.0-38.0); INR 1.6 (0.88-1.18)
[2023-03-28 11:06] LABS: Urine Bacteria Absent (Absent); Urine Red Blood Cell 1+(3-5/hpf) (Absent); Urine White Blood Cell Absent (Absent)
[2023-03-28] MEDS ORDERED: Lactulose 30 ml UDC PO ONE ×2 (11:18→17:10)
[2023-03-28 11:29] LABS: Albumin 2.5 g/dL (3.2-5.2); Albumin/Globulin Ratio 0.6 (1-3); C Reactive Protein 15.17 mg/L (<8.01); Creatinine, Serum 0.99 mg/dL (0.67-1.17); Globulin 3.9 g/dL (2-4); Potassium 3.4 mmol/L (3.5-5.0); Total Bilirubin 1.4 mg/dL (0.2-1.0); Total Protein 6.4 g/dL (6.4-8.9); eGFR CKD-EPI 91.1 (>60)
[2023-03-28] MEDS ORDERED: cefTRIAXone 2 gm/50 mL D5W 2 GM/50 ML BAG IV ONE (12:56)
[2023-03-28] MEDS ORDERED: Albuterol/Ipratropium RESP(NF) MDI (Combivent Respimat) INH PRN (13:26)
[2023-03-28] MEDS ORDERED: Albuterol/Ipratropium NEB.SOL (2.5/0.5 MG) 3 ML NEB.SOLN INH PRN (14:00)
[2023-03-28] MEDS ORDERED: Lactated Ringers 1000 ml BAG 1,000 ML IV ONE (15:05)
[2023-03-28] MEDS: Enoxaparin 40 MG/0.4 ML SYR SUBCUT SCH (15:40)
[2023-03-28] MEDS: Potassium Chlor 10 meq TAB PO SCH (15:41)
[2023-03-28] MEDS ORDERED: TADALAFIL 20 MG PO SCH (21:00)
[2023-03-28] MEDS ORDERED: Lactulose 30 ml UDC ONE (21:31)
[2023-03-28] MEDS: Insulin GLARGINE 100 un/ml 10 ml VIAL SUBCUT SCH (21:33)
[2023-03-28] MEDS: Lactulose 30 ml UDC PO SCH (21:38)
[2023-03-29] MEDS: PTO:Tadalafil 20 mg TAB (NF) PO SCH ×2 (01:32→21:23)
[2023-03-29] MEDS ORDERED: Lactated Ringers 1000 ml BAG 1,000 ML IV ONE (02:27)
[2023-03-29 05:11] LABS: Hematocrit 34.5 % (38-53); Hemoglobin 11.7 g/dL (13.2-16.3); Mean Corpuscular Hemoglobin 30.3 pg (27-33); Mean Corpuscular Hgb Conc 33.8 g/dL (31-36); Mean Corpuscular Volume 89.5 fL (80-97); Mean Platelet Volume 8.4 fL (7.5-11.2); Platelet Count 71 10^3/uL (150-450); Red Blood Count 3.86 10^6/uL (4.06-5.63); Red Cell Distribution Width 24.3 % (12-17)
[2023-03-29 05:24] LABS: INR 1.73 (0.88-1.18)
[2023-03-29 05:36] LABS: ABS Eosinophils 0.1 10^3/uL (0.0-0.5); ABS Lymphocytes 0.9 10^3/uL (1.0-4.8); ABS Monocytes 0.5 10^3/uL (0.0-1.1); ABS Neutrophils 2.4 10^3/uL (1.5-7.6); Eosinophil % 2.5 %; Nucleated Red Blood Cells % 0.1 /100 WBC (0.0-0.4)
[2023-03-29 05:46] LABS: Albumin 2.3 g/dL (3.2-5.2); Albumin/Globulin Ratio 0.7 (1-3); Calcium 7.5 mg/dL (8.6-10.3); Creatinine, Serum 0.98 mg/dL (0.67-1.17); Globulin 3.4 g/dL (2-4); Magnesium 1.6 mg/dL (1.9-2.7); Potassium 3.4 mmol/L (3.5-5.0); Total Bilirubin 1.6 mg/dL (0.2-1.0); Total Protein 5.7 g/dL (6.4-8.9); eGFR CKD-EPI 92.2 (>60)
[2023-03-29] MEDS ORDERED: Magnesium Sulfate 2 gm BAG 2 GM/50 ML BAG IVPB ONE (07:22)
[2023-03-29] MEDS: Potassium Chlor 10 meq TAB PO SCH (08:16)
[2023-03-29] MEDS: CMC:Desvenlafaxine 50 mg TAB ER (NF) PO SCH (08:26)
[2023-03-29] MEDS ORDERED: cefTRIAXone 2 gm/50 mL D5W 2 GM/50 ML BAG IV SCH (09:00)
[2023-03-29] MEDS ORDERED: CMC:Epleronone 25 mg TAB (NF) PO SCH (09:00)
[2023-03-29] MEDS: Lactulose 30 ml UDC PO SCH ×2 (11:03→21:21)
[2023-03-29] MEDS ORDERED: Potassium Chlor 20 meq TAB.ER PO ONE (12:41)
[2023-03-29 15:58] LABS: Body Fluid WBC 395 /mcL
[2023-03-29 15:59] LABS: Body Fluid Appearance Cloudy; Body Fluid Color Yellow; Body Fluid Source Peritonial Fluid
[2023-03-29 16:41] LABS: Body Fluid Mono 64 %; Body Fluid Other Cells 27; Body Fluid Total Cells Counted 200
[2023-03-29] MEDS: Enoxaparin 40 MG/0.4 ML SYR SUBCUT SCH (17:28)
[2023-03-29] MEDS: Insulin GLARGINE 100 un/ml 10 ml VIAL SUBCUT SCH (21:21)
[2023-03-30 06:07] LABS: Calcium 7.5 mg/dL (8.6-10.3); Creatinine, Serum 0.83 mg/dL (0.67-1.17); Magnesium 1.8 mg/dL (1.9-2.7); Potassium 3.5 mmol/L (3.5-5.0); eGFR CKD-EPI 104.7 (>60)
[2023-03-30 06:08] LABS: ABS Eosinophils 0.1 10^3/uL (0.0-0.5); ABS Lymphocytes 0.7 10^3/uL (1.0-4.8); ABS Monocytes 0.6 10^3/uL (0.0-1.1); ABS Neutrophils 2.4 10^3/uL (1.5-7.6); ABS Nucleated RBC 0.01 10^3/ul; Eosinophil % 3.1 %; Hematocrit 32.8 % (38-53); Hemoglobin 11.1 g/dL (13.2-16.3); Lymphocyte % 18.7 %; Mean Corpuscular Hemoglobin 30.2 pg (27-33); Mean Corpuscular Volume 88.9 fL (80-97); Mean Platelet Volume 8.7 fL (7.5-11.2); Nucleated Red Blood Cells % 0.2 /100 WBC (0.0-0.4); Platelet Count 69 10^3/uL (150-450); Red Blood Count 3.68 10^6/uL (4.06-5.63); Red Cell Distribution Width 23.7 % (12-17); White Blood Count 3.8 10^3/uL (3.6-10.2)
[2023-03-30] MEDS ORDERED: Magnesium Sulfate 2 gm BAG 2 GM/50 ML BAG IVPB ONE (07:08)
[2023-03-30] MEDS ORDERED: Potassium Chlor 20 meq TAB.ER PO ONE (07:08)
[2023-03-30] MEDS: Potassium Chlor 10 meq TAB PO SCH (08:10)
[2023-03-30] MEDS: CMC:Desvenlafaxine 50 mg TAB ER (NF) PO SCH (08:10)
[2023-03-30] MEDS: Lactulose 30 ml UDC PO SCH ×2 (08:11→21:08)
[2023-03-30] MEDS: cefTRIAXone 2 gm/50 mL D5W 2 GM/50 ML BAG IV SCH (08:34)
[2023-03-30] MEDS: CMC:Epleronone 25 mg TAB (NF) PO SCH (10:30)
[2023-03-30] MEDS: Enoxaparin 40 MG/0.4 ML SYR SUBCUT SCH (15:07)
[2023-03-30 18:57] LABS: Calcium 7.2 mg/dL (8.6-10.3); Creatinine, Serum 0.98 mg/dL (0.67-1.17); Magnesium 1.9 mg/dL (1.9-2.7); Potassium 3.8 mmol/L (3.5-5.0); eGFR CKD-EPI 92.2 (>60)
[2023-03-30] MEDS: Insulin GLARGINE 100 un/ml 10 ml VIAL SUBCUT SCH (21:07)
[2023-03-30] MEDS: PTO:Tadalafil 20 mg TAB (NF) PO SCH (21:10)
[2023-03-31 06:18] VITALS: BP 120/72
[2023-03-31 06:46] LABS: Calcium 7.1 mg/dL (8.6-10.3); Creatinine, Serum 0.93 mg/dL (0.67-1.17); Magnesium 1.7 mg/dL (1.9-2.7); Potassium 3.4 mmol/L (3.5-5.0); eGFR CKD-EPI 98.2 (>60)
[2023-03-31] MEDS ORDERED: Potassium Chlor 20 meq TAB.ER PO ONE (07:18)
[2023-03-31] MEDS: Potassium Chlor 10 meq TAB PO SCH (08:02)
[2023-03-31] MEDS: CMC:Desvenlafaxine 50 mg TAB ER (NF) PO SCH (08:03)
[2023-03-31] MEDS: CMC:Epleronone 25 mg TAB (NF) PO SCH (08:03)
[2023-03-31] MEDS: cefTRIAXone 2 gm/50 mL D5W 2 GM/50 ML BAG IV SCH (08:08)
[2023-03-31] MEDS: Lactulose 30 ml UDC PO SCH (08:28)
[2023-03-31] MEDS ORDERED: Magnesium Sulfate IV 3 GM in NS 0.9% 100 ml BAG 100 ML IVPB ONE (08:30)
[2023-04-01 12:10] LABS: Lactate Dehydrogenase, BF 36 U/L
[2023-04-01 15:08] LABS: Albumin, BF 0.3 g/dL; Fluid Type, Albumin PERITONEAL; Fluid Type, Protein, Total PERITONEAL; Glucose, BF 178 mg/dL; Total Protein, BF 0.6 g/dL
== END 2023-03-31 10:52 | disposition home or self-care (01) | DRG 280 ==
LOC: ED 09:52 → EDHOLD 09:52 → SUATTDRO 12:34 → EDHOLD 03-29 17:18 → MEDTELE 03-29 18:10
PROVIDERS: ADMIT Internal Medicine; ATTEND Internal Medicine

== ENCOUNTER 2023-05-07 12:25 | Observation (INO) ==
[2023-05-07 12:55] LABS: Hematocrit 36.5 % (38-53); Hemoglobin 12.4 g/dL (13.2-16.3); Mean Corpuscular Hgb Conc 34.1 g/dL (31-36); Platelet Count 90 10^3/uL (150-450); Red Blood Count 4.01 10^6/uL (4.06-5.63); Red Cell Distribution Width 16.2 % (12-17); White Blood Count 6.1 10^3/uL (3.6-10.2)
[2023-05-07 13:01] LABS: INR 1.64 (0.88-1.18)
[2023-05-07] MEDS ORDERED: Ondansetron 4 mg VIAL 2 MG/ML 2 ml VIAL IV ONE (13:02)
[2023-05-07 13:09] LABS: Albumin 2.5 g/dL (3.2-5.2); Albumin/Globulin Ratio 0.6 (1-3); C Reactive Protein 11.37 mg/L (<8.01); Calcium 8.9 mg/dL (8.6-10.3); Creatinine, Serum 1.11 mg/dL (0.67-1.17); Direct Bilirubin 0.4 mg/dL (0.03-0.18); Globulin 4.4 g/dL (2-4); Indirect Bilirubin 1.8 mg/dL (0.3-1.0); Magnesium 1.8 mg/dL (1.9-2.7); Potassium 3.6 mmol/L (3.5-5.0); Total Bilirubin 2.2 mg/dL (0.2-1.0); Total Protein 6.9 g/dL (6.4-8.9); eGFR CKD-EPI 79.4 (>60)
[2023-05-07] MEDS ORDERED: Morphine 2 MG/ML SYRINGE IV ONE ×2 (13:10→14:33)
[2023-05-07] MEDS ORDERED: Lactulose 30 ml UDC PO ONE (13:15)
[2023-05-07 13:23] LABS: Anisocytosis 1+; Tear Drop Cells 1+
[2023-05-07 13:24] LABS: ABS Eosinophils 0.1 10^3/uL (0.0-0.5); ABS Lymphocytes 1.1 10^3/uL (1.0-4.8); ABS Monocytes 0.6 10^3/uL (0.0-1.1); ABS Neutrophils 4.4 10^3/uL (1.5-7.6); ABS Nucleated RBC 0.01 10^3/ul; Lymphocyte % 17.2 %; Nucleated Red Blood Cells % 0.1 /100 WBC (0.0-0.4)
[2023-05-07] MEDS ORDERED: Iodixanol (CONTRAST) 320 MG/ML 100 ML SDV IV ONE (13:34)
[2023-05-07] MEDS ORDERED: Lactated Ringers 1000 ml BAG 1,000 ML IV ONE (14:33)
[2023-05-07 15:01] LABS: Urine Appearance Clear; Urine Bilirubin Negative (Negative); Urine Blood Negative (Negative); Urine Color Yellow; Urine Glucose Negative (Negative); Urine Ketones Negative (Negative); Urine Nitrite Negative (Negative); Urine Protein Negative (Negative); Urine Specific Gravity 1.012 (1.002-1.030); Urine Urobilinogen Negative (Negative)
[2023-05-07] MEDS ORDERED: cefTRIAXone 2 gm/50 mL D5W 2 GM/50 ML BAG IV ONE (15:53)
[2023-05-07] MEDS ORDERED: Magnesium Hydroxide LIQ 30 ML UDC PO PRN (17:22)
[2023-05-07] MEDS ORDERED: Ondansetron 4 mg VIAL 2 MG/ML 2 ml VIAL IV PRN (17:22)
[2023-05-07] MEDS ORDERED: Potassium Chlor 20 meq TAB.ER PO SCH (17:30)
[2023-05-07] MEDS ORDERED: NS 0.9% 1000 ml BAG 1,000 ML IV SCH (17:30)
[2023-05-07] MEDS ORDERED: Vancomycin 1,000 MG in NS 0.9% 250 ml 250 ML IVPB SCH (17:31)
[2023-05-07] MEDS ORDERED: Dextrose 50% Syringe 50 ml 25 GM/50 ML SYRINGE IV PUSH PRN (17:49)
[2023-05-07] MEDS ORDERED: Vancomycin per Pharmacy 1 EA NOTE FOLLOW UP PRN (17:51)
[2023-05-07] MEDS ORDERED: ZOSYN 3.375 GM x ONE DOSE over 30 miuntes IV (18:00)
[2023-05-07] MEDS ORDERED: Vancomycin 1,500 MG in NS 0.9% 250 ml 250 ML IVPB ONE (18:00)
[2023-05-07] MEDS ORDERED: Zosyn per Pharmacy NOTE FOLLOW UP SCH (18:00)
[2023-05-07] MEDS ORDERED: Enoxaparin 40 MG/0.4 ML SYR SUBCUT SCH (18:00)
[2023-05-07] MEDS: CMCS: Epleronone 25 mg TAB (NF) PO SCH (18:54)
[2023-05-07] MEDS: Lactulose 30 ml UDC PO SCH (21:47)
[2023-05-07] MEDS ORDERED: ZOSYN 3.375 GM Q8H per EXTENDED INFUSION IV SCH (22:30)
[2023-05-07] MEDS: ZOSYN 3.375 GM Q8H per EXTENDED INFUSION IV SCH (23:57)
[2023-05-08] MEDS: ZOSYN 3.375 GM Q8H per EXTENDED INFUSION IV SCH (06:14)
[2023-05-08 07:30] LABS: Calcium 7.1 mg/dL (8.6-10.3); Creatinine, Serum 1.22 mg/dL (0.67-1.17); Potassium 3.2 mmol/L (3.5-5.0); eGFR CKD-EPI 70.9 (>60)
[2023-05-08 07:35] LABS: ABS Eosinophils 0.1 10^3/uL (0.0-0.5); ABS Lymphocytes 0.8 10^3/uL (1.0-4.8); ABS Monocytes 0.5 10^3/uL (0.0-1.1); Eosinophil % 3.1 %; Hematocrit 31.2 % (38-53); Hemoglobin 10.7 g/dL (13.2-16.3); Lymphocyte % 18.1 %; Mean Corpuscular Hemoglobin 31.9 pg (27-33); Mean Corpuscular Hgb Conc 34.3 g/dL (31-36); Mean Corpuscular Volume 93.1 fL (80-97); Nucleated Red Blood Cells % 0.1 /100 WBC (0.0-0.4); Platelet Count 68 10^3/uL (150-450); Red Blood Count 3.35 10^6/uL (4.06-5.63); Red Cell Distribution Width 15.6 % (12-17); White Blood Count 4.6 10^3/uL (3.6-10.2)
[2023-05-08] MEDS ORDERED: Potassium Chlor 20 meq TAB.ER PO ONE (08:11)
[2023-05-08] MEDS: CMCS: Epleronone 25 mg TAB (NF) PO SCH (08:18)
[2023-05-08] MEDS: Lactulose 30 ml UDC PO SCH (08:21)
[2023-05-08] MEDS ORDERED: Potassium Chlor 20 meq TAB.ER PO SCH ×2 (09:00)
[2023-05-08] MEDS ORDERED: Vancomycin 1,250 MG in NS 0.9% 250 ml 250 ML IVPB SCH (09:00)
[2023-05-08 10:09] VITALS: BP 124/74
[2023-05-09] MEDS ORDERED: Vancomycin Trough Check NOTE FOLLOW UP ONE (08:30)
== END 2023-05-08 13:20 | disposition home or self-care (01) ==
LOC: EDHOLD 12:25 → ED 12:25 → SUATTDRO 17:22 → MEDTELE 19:50
PROVIDERS: ADMIT Internal Medicine; ATTEND Family Medicine

== ENCOUNTER 2023-06-15 02:03 | Observation (INO) ==
[2023-06-15 07:39] LABS: Hematocrit 30.1 % (38-53); Hemoglobin 10.2 g/dL (13.2-16.3); INR 1.87 (0.88-1.18); Mean Corpuscular Volume 91.1 fL (80-97); Red Cell Distribution Width 16.7 % (12-17); White Blood Count 5.9 10^3/uL (3.6-10.2)
[2023-06-15 07:59] LABS: Albumin 2.1 g/dL (3.2-5.2); Albumin/Globulin Ratio 0.6 (1-3); Calcium 7.5 mg/dL (8.6-10.3); Creatinine, Serum 1.48 mg/dL (0.67-1.17); Globulin 3.6 g/dL (2-4); Potassium 4.3 mmol/L (3.5-5.0); Total Bilirubin 1.6 mg/dL (0.2-1.0); Total Protein 5.7 g/dL (6.4-8.9); eGFR CKD-EPI 56.2 (>60)
[2023-06-15 09:13] LABS: ABS Eosinophils 0.1 10^3/uL (0.0-0.5); ABS Lymphocytes 0.6 10^3/uL (1.0-4.8); ABS Monocytes 0.7 10^3/uL (0.0-1.1); ABS Neutrophils 4.6 10^3/uL (1.5-7.6); Eosinophil % 1.8 %; Lymphocyte % 10.2 %; Mean Platelet Volume 9.5 fL (7.5-11.2); Nucleated Red Blood Cells % 0.1 /100 WBC (0.0-0.4); Platelet Count 64 10^3/uL (150-450)
[2023-06-15 09:20] LABS: Glucose 640 mg/dL (70-100)
[2023-06-15 09:22] LABS: High Sensitivity Troponin 1 Hr 7 pg/mL (<20)
[2023-06-15 10:20] LABS: Osmolality Serum 310 mOsm/kg (275-295)
[2023-06-15 14:57] LABS: Body Fluid Appearance Clear; Body Fluid Color Colorless; Body Fluid Source Peritonial Fluid
[2023-06-15 14:59] LABS: Body Fluid WBC 173 /mcL
[2023-06-15 15:33] LABS: Body Fluid Mono 70 %; Body Fluid Other Cells 11; Body Fluid Total Cells Counted 200
[2023-06-15] MEDS ORDERED: Dextrose 50% Syringe 50 ml 25 GM/50 ML SYRINGE IV PUSH PRN ×2 (17:28→17:42)
[2023-06-15] MEDS ORDERED: NORMOSOL-R pH 7.4 1000 mL BAG 1,000 ML IV ONE (17:42)
[2023-06-15] MEDS ORDERED: Insulin Infusion 100unit/100mL 100 UNIT/100 ML BAG IV SCH ×2 (18:00)
[2023-06-15 18:20] LABS: Venous Bicarbonate HCO3 28.9 mmol/L (24-28)
[2023-06-15] MEDS ORDERED: Ondansetron 4 mg VIAL 2 MG/ML 2 ml VIAL IV PRN (18:32)
[2023-06-15] MEDS ORDERED: NORMOSOL-R pH 7.4 1000 mL BAG 1,000 ML IV SCH (19:00)
[2023-06-15 20:00] LABS: C Reactive Protein 13.11 mg/L (<8.01)
[2023-06-15 20:44] LABS: Blood Urea Nitrogen 14 mg/dL (6-24); CO2 Carbon Dioxide 26 mmol/L (22-32); Calcium 6.9 mg/dL (8.6-10.3); Chloride 100 mmol/L (101-111); Creatinine, Serum 1.34 mg/dL (0.67-1.17); Glucose 330 mg/dL (70-100); Sodium 131 mmol/L (135-145); eGFR CKD-EPI 63.3 (>60)
[2023-06-15 20:57] LABS: Anion Gap 5 mmol/L (2-16)
[2023-06-15] MEDS ORDERED: Tadalafil 20 mg TAB (NF) PO SCH ×2 (21:00)
[2023-06-15 21:54] LABS: Creatinine, Serum 1.32 mg/dL (0.67-1.17); Potassium 3.6 mmol/L (3.5-5.0); eGFR CKD-EPI 64.5 (>60)
[2023-06-15] MEDS ORDERED: TADALAFIL 20 MG PO SCH (23:00)
[2023-06-15] MEDS: Enoxaparin 40 MG/0.4 ML SYR SUBCUT SCH ×2 (23:00→23:02)
[2023-06-15] MEDS: LEVOCARNITINE 330 MG PO SCH (23:04)
[2023-06-15] MEDS ORDERED: PTO: Umeclidinium 62.5 MDI(NF) MDI INH SCH (23:04)
[2023-06-15 23:42] LABS: Blood Urea Nitrogen 14 mg/dL (6-24); CO2 Carbon Dioxide 26 mmol/L (22-32); Calcium 7.1 mg/dL (8.6-10.3); Chloride 101 mmol/L (101-111); Creatinine, Serum 1.28 mg/dL (0.67-1.17); Glucose 158 mg/dL (70-100); Sodium 133 mmol/L (135-145); eGFR CKD-EPI 66.9 (>60)
[2023-06-15 23:45] LABS: Anion Gap 6 mmol/L (2-16)
[2023-06-15 23:50] LABS: Potassium, Whole Blood 3.6 mmol/L (3.4-4.5)
[2023-06-16] MEDS ORDERED: Insulin GLARGINE 100 un/ml 10 ml VIAL SUBCUT ONE (00:21)
[2023-06-16 04:35] LABS: Hematocrit 28.4 % (38-53); Hemoglobin 9.9 g/dL (13.2-16.3); Mean Corpuscular Hemoglobin 30.9 pg (27-33); Mean Corpuscular Hgb Conc 34.9 g/dL (31-36); Mean Corpuscular Volume 88.5 fL (80-97); Mean Platelet Volume 9.4 fL (7.5-11.2); Platelet Count 66 10^3/uL (150-450); Red Blood Count 3.21 10^6/uL (4.06-5.63); Red Cell Distribution Width 16.9 % (12-17); White Blood Count 4.5 10^3/uL (3.6-10.2)
[2023-06-16 04:48] LABS: Creatinine, Serum 1.27 mg/dL (0.67-1.17); Magnesium 1.5 mg/dL (1.9-2.7); Potassium 3.7 mmol/L (3.5-5.0); eGFR CKD-EPI 67.6 (>60)
[2023-06-16 05:03] LABS: ABS Eosinophils 0.2 10^3/uL (0.0-0.5); ABS Lymphocytes 0.8 10^3/uL (1.0-4.8); ABS Monocytes 0.6 10^3/uL (0.0-1.1); ABS Neutrophils 2.9 10^3/uL (1.5-7.6); ABS Nucleated RBC 0.01 10^3/ul; Eosinophil % 3.5 %; Lymphocyte % 18.1 %; Nucleated Red Blood Cells % 0.2 /100 WBC (0.0-0.4); RBC Morphology Normal (Normal)
[2023-06-16 07:05] LABS: Creatinine, Serum 1.25 mg/dL (0.67-1.17); Potassium 3.7 mmol/L (3.5-5.0); eGFR CKD-EPI 68.9 (>60)
[2023-06-16] MEDS ORDERED: KCL 20 MEQ/100 ML IVPREMIX 20 MEQ/100 ML BAG IV SCH (08:00)
[2023-06-16] MEDS ORDERED: PTO: Umeclidinium 62.5 MDI(NF) MDI INH SCH (09:00)
[2023-06-16 10:26] VITALS: BP 110/84
[2023-06-16] MEDS: LEVOCARNITINE 330 MG PO SCH (10:36)
[2023-06-17 15:05] LABS: Fluid Type, Protein, Total PERITONEAL; Total Protein, BF 0.4 g/dL
[2023-06-17 15:23] LABS: Glucose, BF 691 mg/dL
== END 2023-06-16 11:00 | disposition home or self-care (01) ==
LOC: ED 02:03 → EDHOLD 17:49 → INTOOBSV 17:49 → ICU 18:59
PROVIDERS: ADMIT Internal Medicine Critical Care Medicine; ATTEND Internal Medicine Critical Care Medicine

== ENCOUNTER 2023-06-18 11:35 | Inpatient (IN) ==
[2023-06-18] MEDS ORDERED: NS 0.9% 1000 ml BAG 1,000 ML IV ONE (12:18)
[2023-06-18 12:30] LABS: ABS Lymphocytes 0.6 10^3/uL (1.0-4.8); ABS Monocytes 0.4 10^3/uL (0.0-1.1); ABS Neutrophils 3.3 10^3/uL (1.5-7.6); ABS Nucleated RBC 0.01 10^3/ul; Eosinophil % 0.7 %; Hematocrit 34.3 % (38-53); Hemoglobin 11.9 g/dL (13.2-16.3); Mean Corpuscular Hemoglobin 30.4 pg (27-33); Mean Corpuscular Hgb Conc 34.6 g/dL (31-36); Mean Corpuscular Volume 87.7 fL (80-97); Mean Platelet Volume 9.2 fL (7.5-11.2); Nucleated Red Blood Cells % 0.3 /100 WBC (0.0-0.4); Platelet Count 74 10^3/uL (150-450); Red Blood Count 3.91 10^6/uL (4.06-5.63); Red Cell Distribution Width 16.8 % (12-17); White Blood Count 4.4 10^3/uL (3.6-10.2)
[2023-06-18 12:40] LABS: INR 1.61 (0.88-1.18)
[2023-06-18 12:47] LABS: Albumin 2.4 g/dL (3.2-5.2); Albumin/Globulin Ratio 0.6 (1-3); C Reactive Protein 18.6 mg/L (<8.01); Calcium 7.6 mg/dL (8.6-10.3); Creatinine, Serum 1.36 mg/dL (0.67-1.17); Globulin 4.2 g/dL (2-4); Magnesium 1.5 mg/dL (1.9-2.7); Phosphorus 2.6 mg/dL (2.5-5.0); Potassium 3.6 mmol/L (3.5-5.0); Total Bilirubin 1.7 mg/dL (0.2-1.0); Total Protein 6.6 g/dL (6.4-8.9); eGFR CKD-EPI 62.2 (>60)
[2023-06-18 13:15] LABS: Venous Bicarbonate HCO3 26.7 mmol/L (24-28)
[2023-06-18 13:40] LABS: High Sensitivity Troponin 1 Hr 6 pg/mL (<20)
[2023-06-18 14:37] LABS: Osmolality Serum 302 mOsm/kg (275-295)
[2023-06-18] MEDS ORDERED: Lactulose 300 ML for PR 200 GM/300 ML BTL PR SCH (17:00)
[2023-06-18] MEDS ORDERED: Lactulose 30 ml UDC ONE (17:43)
[2023-06-18] MEDS: Lactulose 30 ml UDC PO SCH ×2 (17:46→21:17)
[2023-06-18] MEDS: Droperidol 5 MG/2 ML 2 ML VIAL IV ONE ×2 (18:26→18:35)
[2023-06-18] MEDS ORDERED: Droperidol 5 MG/2 ML 2 ML VIAL ONE (18:27)
[2023-06-18] MEDS ORDERED: LORazepam 2 mg VIAL 1 ml IM PRN (18:30)
[2023-06-18] MEDS ORDERED: Lorazepam PYXIS KEY PRN (18:30)
[2023-06-18] MEDS ORDERED: Dextrose 50% Syringe 50 ml 25 GM/50 ML SYRINGE IV PUSH PRN (19:46)
[2023-06-18] MEDS ORDERED: Lactulose 30 ml UDC PO SCH (21:00)
[2023-06-18] MEDS: TADALAFIL 20 MG PO SCH (22:16)
[2023-06-19] MEDS: Enoxaparin 40 MG/0.4 ML SYR SUBCUT SCH ×2 (01:08→20:36)
[2023-06-19 06:30] LABS: ABS Eosinophils 0.1 10^3/uL (0.0-0.5); ABS Lymphocytes 0.9 10^3/uL (1.0-4.8); ABS Monocytes 0.6 10^3/uL (0.0-1.1); ABS Neutrophils 2.5 10^3/uL (1.5-7.6); ABS Nucleated RBC 0.01 10^3/ul; Eosinophil % 3.6 %; Hematocrit 28.4 % (38-53); Hemoglobin 9.8 g/dL (13.2-16.3); Lymphocyte % 21.2 %; Mean Corpuscular Hemoglobin 30.4 pg (27-33); Mean Corpuscular Hgb Conc 34.6 g/dL (31-36); Mean Platelet Volume 9.2 fL (7.5-11.2); Nucleated Red Blood Cells % 0.1 /100 WBC (0.0-0.4); Platelet Count 61 10^3/uL (150-450); Red Blood Count 3.23 10^6/uL (4.06-5.63); Red Cell Distribution Width 17.2 % (12-17); White Blood Count 4.1 10^3/uL (3.6-10.2)
[2023-06-19 06:32] LABS: INR 1.78 (0.88-1.18)
[2023-06-19 06:44] LABS: Albumin/Globulin Ratio 0.6 (1-3); Calcium 7.5 mg/dL (8.6-10.3); Creatinine, Serum 1.26 mg/dL (0.67-1.17); Globulin 3.5 g/dL (2-4); Magnesium 1.5 mg/dL (1.9-2.7); Potassium 3.1 mmol/L (3.5-5.0); Total Bilirubin 2.2 mg/dL (0.2-1.0); Total Protein 5.5 g/dL (6.4-8.9); eGFR CKD-EPI 68.2 (>60)
[2023-06-19] MEDS: SPIRIVA Respimat (tiotropium) 2.5 mcg/inh Inhaler INH SCH (07:56)
[2023-06-19] MEDS ORDERED: Magnesium Sulfate 2 gm BAG 2 GM/50 ML BAG IVPB ONE ×2 (09:02→14:15)
[2023-06-19] MEDS ORDERED: Potassium Chlor 20 meq TAB.ER PO ONE ×2 (09:02→14:15)
[2023-06-19] MEDS: Epleronone 25 mg TAB (NF) PO SCH (09:51)
[2023-06-19] MEDS: Lactulose 30 ml UDC PO SCH (09:53)
[2023-06-19] MEDS ORDERED: Lactulose 30 ml UDC PO PRN (10:54)
[2023-06-19 13:47] LABS: Hematocrit 31.9 % (38-53); Hemoglobin 10.6 g/dL (13.2-16.3); Mean Corpuscular Hemoglobin 30.1 pg (27-33); Mean Corpuscular Hgb Conc 33.4 g/dL (31-36); Mean Corpuscular Volume 90.1 fL (80-97); Mean Platelet Volume 8.8 fL (7.5-11.2); Platelet Count 73 10^3/uL (150-450); Red Blood Count 3.54 10^6/uL (4.06-5.63); White Blood Count 5.6 10^3/uL (3.6-10.2)
[2023-06-19 13:54] LABS: Calcium 7.6 mg/dL (8.6-10.3); Creatinine, Serum 1.21 mg/dL (0.67-1.17); Magnesium 1.9 mg/dL (1.9-2.7); Potassium 3.5 mmol/L (3.5-5.0); eGFR CKD-EPI 71.6 (>60)
[2023-06-19] MEDS: LEVOCARNITINE 330 MG PO SCH ×2 (14:57→20:36)
[2023-06-19] MEDS: TADALAFIL 20 MG PO SCH (20:35)
[2023-06-19] MEDS: Insulin GLARGINE 100 un/ml 10 ml VIAL SUBCUT SCH (20:36)
[2023-06-19] MEDS ORDERED: Hemorrhoidal OINT 1 TUBE PR PRN (21:06)
[2023-06-20] MEDS: SPIRIVA Respimat (tiotropium) 2.5 mcg/inh Inhaler INH SCH (08:15)
[2023-06-20] MEDS ORDERED: Haloperidol 5 mg/ml SDV IV/IM 5 MG/ML AMP IM PRN ×2 (11:21→12:34)
[2023-06-20 12:28] LABS: ABS Eosinophils 0.1 10^3/uL (0.0-0.5); ABS Monocytes 0.6 10^3/uL (0.0-1.1); ABS Neutrophils 3.7 10^3/uL (1.5-7.6); ABS Nucleated RBC 0.01 10^3/ul; Eosinophil % 1.3 %; Mean Corpuscular Hemoglobin 30.6 pg (27-33); Mean Corpuscular Hgb Conc 34.5 g/dL (31-36); Mean Corpuscular Volume 88.8 fL (80-97); Mean Platelet Volume 8.6 fL (7.5-11.2); Nucleated Red Blood Cells % 0.2 /100 WBC (0.0-0.4); Platelet Count 71 10^3/uL (150-450); Red Blood Count 3.27 10^6/uL (4.06-5.63); White Blood Count 5.3 10^3/uL (3.6-10.2)
[2023-06-20 12:35] LABS: Albumin 2.2 g/dL (3.2-5.2); Albumin/Globulin Ratio 0.6 (1-3); Calcium 7.3 mg/dL (8.6-10.3); Creatinine, Serum 1.17 mg/dL (0.67-1.17); Direct Bilirubin 0.5 mg/dL (0.03-0.18); Globulin 3.7 g/dL (2-4); Indirect Bilirubin 1.1 mg/dL (0.3-1.0); Magnesium 1.7 mg/dL (1.9-2.7); Potassium 3.8 mmol/L (3.5-5.0); Total Bilirubin 1.6 mg/dL (0.2-1.0); Total Protein 5.9 g/dL (6.4-8.9); eGFR CKD-EPI 74.5 (>60)
[2023-06-20] MEDS: Epleronone 25 mg TAB (NF) PO SCH (12:55)
[2023-06-20] MEDS: LEVOCARNITINE 330 MG PO SCH ×3 (12:55→21:43)
[2023-06-20] MEDS ORDERED: Magnesium Sulfate 2 gm BAG 2 GM/50 ML BAG IVPB ONE (13:24)
[2023-06-20] MEDS: Insulin GLARGINE 100 un/ml 10 ml VIAL SUBCUT SCH (21:39)
[2023-06-20] MEDS: Enoxaparin 40 MG/0.4 ML SYR SUBCUT SCH (21:40)
[2023-06-20] MEDS: TADALAFIL 20 MG PO SCH (21:42)
[2023-06-21] MEDS: SPIRIVA Respimat (tiotropium) 2.5 mcg/inh Inhaler INH SCH (07:25)
[2023-06-21] MEDS: LEVOCARNITINE 330 MG PO SCH ×3 (10:04→20:11)
[2023-06-21] MEDS: Epleronone 25 mg TAB (NF) PO SCH (10:04)
[2023-06-21] MEDS ORDERED: Haloperidol 5 mg/ml SDV IV/IM 5 MG/ML AMP IV SLOW PU PRN (17:38)
[2023-06-21] MEDS: TADALAFIL 20 MG PO SCH (20:13)
[2023-06-21] MEDS: Insulin GLARGINE 100 un/ml 10 ml VIAL SUBCUT SCH (20:14)
[2023-06-21] MEDS: Enoxaparin 40 MG/0.4 ML SYR SUBCUT SCH (20:14)
[2023-06-21] MEDS ORDERED: HYDROmorphone 0.5 MG/0.5 ML SYRINGE IV SLOW PU ONE (21:38)
[2023-06-22 06:02] LABS: ABS Eosinophils 0.2 10^3/uL (0.0-0.5); ABS Monocytes 0.7 10^3/uL (0.0-1.1); ABS Neutrophils 2.7 10^3/uL (1.5-7.6); Eosinophil % 3.6 %; Hematocrit 26.6 % (38-53); Lymphocyte % 22.3 %; Mean Corpuscular Hemoglobin 30.3 pg (27-33); Mean Corpuscular Hgb Conc 33.9 g/dL (31-36); Mean Corpuscular Volume 89.3 fL (80-97); Mean Platelet Volume 9.4 fL (7.5-11.2); Nucleated Red Blood Cells % 0.1 /100 WBC (0.0-0.4); Platelet Count 70 10^3/uL (150-450); Red Blood Count 2.98 10^6/uL (4.06-5.63); Red Cell Distribution Width 17.2 % (12-17); White Blood Count 4.6 10^3/uL (3.6-10.2)
[2023-06-22 06:21] LABS: Albumin 1.9 g/dL (3.2-5.2); Albumin/Globulin Ratio 0.5 (1-3); Calcium 7.1 mg/dL (8.6-10.3); Creatinine, Serum 0.96 mg/dL (0.67-1.17); Globulin 3.5 g/dL (2-4); Magnesium 1.7 mg/dL (1.9-2.7); Potassium 3.2 mmol/L (3.5-5.0); Total Bilirubin 1.4 mg/dL (0.2-1.0); Total Protein 5.4 g/dL (6.4-8.9); eGFR CKD-EPI 94.5 (>60)
[2023-06-22] MEDS: SPIRIVA Respimat (tiotropium) 2.5 mcg/inh Inhaler INH SCH (08:23)
[2023-06-22] MEDS: LEVOCARNITINE 330 MG PO SCH ×2 (08:32→12:58)
[2023-06-22] MEDS: Epleronone 25 mg TAB (NF) PO SCH (08:33)
[2023-06-22] MEDS ORDERED: Potassium Chlor 20 meq TAB.ER PO ONE (11:07)
[2023-06-22] MEDS ORDERED: Magnesium Sulfate 2 gm BAG 2 GM/50 ML BAG IVPB ONE (11:09)
[2023-06-22 12:57] VITALS: BP 117/80
== END 2023-06-22 14:20 | disposition home or self-care (01) | DRG 280 ==
LOC: ED 11:35 → EDHOLD 11:35 → SUATTDRO 15:32 → MED 23:33
PROVIDERS: ADMIT Student in an Organized Health Care Education/Training Program; ATTEND Internal Medicine

== ENCOUNTER 2023-08-14 09:29 | Inpatient (IN) ==
[2023-08-14] MEDS: Lactated Ringers 1000 ml BAG 1,000 ML IV SCH ×2 (11:00→17:52)
[2023-08-14 11:17] LABS: ABS Lymphocytes 0.5 10^3/uL (1.0-4.8); ABS Monocytes 0.4 10^3/uL (0.0-1.1); ABS Neutrophils 2.6 10^3/uL (1.5-7.6); ABS Nucleated RBC 0.01 10^3/ul; Eosinophil % 0.9 %; Hematocrit 26.9 % (38-53); Hemoglobin 9.1 g/dL (13.2-16.3); Lymphocyte % 15.1 %; Mean Corpuscular Hemoglobin 28.6 pg (27-33); Mean Corpuscular Hgb Conc 33.9 g/dL (31-36); Mean Corpuscular Volume 84.3 fL (80-97); Mean Platelet Volume 9.4 fL (7.5-11.2); Nucleated Red Blood Cells % 0.2 /100 WBC (0.0-0.4); Platelet Count 62 10^3/uL (150-450); Red Cell Distribution Width 21.5 % (12-17); White Blood Count 3.6 10^3/uL (3.6-10.2)
[2023-08-14 11:21] LABS: Calcium 7.9 mg/dL (8.6-10.3); INR 1.55 (0.83-1.13); Potassium 3.4 mmol/L (3.5-5.0)
[2023-08-14 11:26] LABS: Creatinine, Serum 0.91 mg/dL (0.67-1.17); eGFR CKD-EPI 100.8 (>60)
[2023-08-14] MEDS ORDERED: Haloperidol 5 mg/ml SDV IV/IM 5 MG/ML AMP IV SLOW PU PRN ×2 (12:13→12:15)
[2023-08-14] MEDS ORDERED: Haloperidol 5 mg/ml SDV IV/IM 5 MG/ML AMP IV SLOW PU ONE (12:14)
[2023-08-14] MEDS ORDERED: Haloperidol 5 mg/ml SDV IV/IM 5 MG/ML AMP ONE (12:15)
[2023-08-14] MEDS: Dexmedetomidine 1,000 MCG in NS 0.9% 250 ml 240 ML IV SCH ×2 (12:30→14:13)
[2023-08-14] MEDS ORDERED: Lactulose 30 ml UDC PO SCH (13:00)
[2023-08-14] MEDS ORDERED: RiFAXimin SUSP ORALSYR 20mg/mL PO SCH (13:00)
[2023-08-14] MEDS: Enoxaparin 40 MG/0.4 ML SYR SUBCUT SCH (13:06)
[2023-08-14] MEDS: KCL 20 MEQ/100 ML IVPREMIX 20 MEQ/100 ML BAG IV SCH ×3 (13:08→18:34)
[2023-08-14] MEDS: cefTRIAXone 1 gm/50 mL D5W 1 GM/50 ML BAG IV SCH (13:49)
[2023-08-14 14:26] LABS: Albumin 2.8 g/dL (3.2-5.2); Direct Bilirubin 0.6 mg/dL (0.03-0.18); Indirect Bilirubin 1.4 mg/dL (0.3-1.0)
[2023-08-14 14:31] LABS: Albumin/Globulin Ratio 0.8 (1-3); Globulin 3.7 g/dL (2-4); Total Protein 6.5 g/dL (6.4-8.9)
[2023-08-14] MEDS ORDERED: Potassium Chlor 20 meq TAB.ER PO ONE (15:00)
[2023-08-14] MEDS: Lactulose 30 ml UDC NG TUBE SCH ×3 (16:27→21:29)
[2023-08-14 16:32] LABS: C Reactive Protein 11.46 mg/L (<8.01)
[2023-08-14] MEDS ORDERED: RiFAXimin SUSP ORALSYR 20mg/mL PO ONE (17:01)
[2023-08-14] MEDS: LEVOCARNITINE 330 MG PO SCH (21:26)
[2023-08-14] MEDS: RiFAXimin SUSP ORALSYR 20mg/mL FEED TUBE SCH (21:29)
[2023-08-14 21:43] LABS: Urine Appearance Clear; Urine Bilirubin Negative (Negative); Urine Blood 2+ (Negative); Urine Color Amber; Urine Glucose Negative (Negative); Urine Ketones Negative (Negative); Urine Nitrite Negative (Negative); Urine Protein Negative (Negative); Urine Specific Gravity 1.014 (1.002-1.030); Urine Urobilinogen Negative (Negative)
[2023-08-14 21:47] LABS: Urine Bacteria Absent (Absent); Urine Red Blood Cell 2+(6-10/hpf) (Absent); Urine White Blood Cell Trace(0-5/hpf) (Absent)
[2023-08-15 04:14] LABS: Hematocrit 25.3 % (38-53); Hemoglobin 8.5 g/dL (13.2-16.3); Mean Corpuscular Hemoglobin 28.3 pg (27-33); Mean Corpuscular Hgb Conc 33.5 g/dL (31-36); Mean Corpuscular Volume 84.6 fL (80-97); Mean Platelet Volume 9.6 fL (7.5-11.2); Platelet Count 61 10^3/uL (150-450); Red Blood Count 2.99 10^6/uL (4.06-5.63); Red Cell Distribution Width 21.3 % (12-17); White Blood Count 3.9 10^3/uL (3.6-10.2)
[2023-08-15 04:22] LABS: Albumin 2.4 g/dL (3.2-5.2); Albumin/Globulin Ratio 0.8 (1-3); Calcium 7.8 mg/dL (8.6-10.3); Creatinine, Serum 1.05 mg/dL (0.67-1.17); Globulin 3.2 g/dL (2-4); Phosphorus 4.1 mg/dL (2.5-5.0); Potassium 4.1 mmol/L (3.5-5.0); Total Bilirubin 2.1 mg/dL (0.2-1.0); Total Protein 5.6 g/dL (6.4-8.9); eGFR CKD-EPI 84.9 (>60)
[2023-08-15 04:32] LABS: ABS Basophils 0.1 10^3/uL (0.0-0.1); ABS Eosinophils 0.1 10^3/uL (0.0-0.5); ABS Lymphocytes 0.8 10^3/uL (1.0-4.8); ABS Monocytes 0.5 10^3/uL (0.0-1.1); ABS Neutrophils 2.3 10^3/uL (1.5-7.6); ABS Nucleated RBC 0.01 10^3/ul; Eosinophil % 3.9 %; Lymphocyte % 21.8 %; Nucleated Red Blood Cells % 0.2 /100 WBC (0.0-0.4)
[2023-08-15] MEDS: Lactulose 30 ml UDC NG TUBE SCH ×4 (09:32→21:07)
[2023-08-15] MEDS: RiFAXimin SUSP ORALSYR 20mg/mL FEED TUBE SCH ×2 (09:33→21:09)
[2023-08-15] MEDS: Epleronone 25 mg TAB (NF) PO SCH ×2 (09:33→21:08)
[2023-08-15] MEDS: LEVOCARNITINE 330 MG PO SCH ×2 (10:21→20:59)
[2023-08-15] MEDS: Enoxaparin 40 MG/0.4 ML SYR SUBCUT SCH (14:24)
[2023-08-15] MEDS: Dexmedetomidine 1,000 MCG in NS 0.9% 250 ml 240 ML IV SCH ×2 (14:27→21:20)
[2023-08-15] MEDS: cefTRIAXone 1 gm/50 mL D5W 1 GM/50 ML BAG IV SCH (14:48)
[2023-08-15] MEDS ORDERED: Dextrose 50% Syringe 50 ml 25 GM/50 ML SYRINGE IV PUSH PRN (18:13)
[2023-08-16 05:51] LABS: ABS Eosinophils 0.2 10^3/uL (0.0-0.5); ABS Lymphocytes 0.8 10^3/uL (1.0-4.8); ABS Monocytes 0.4 10^3/uL (0.0-1.1); ABS Neutrophils 2.2 10^3/uL (1.5-7.6); Eosinophil % 5.5 %; Hemoglobin 8.5 g/dL (13.2-16.3); Lymphocyte % 20.9 %; Mean Corpuscular Hemoglobin 28.3 pg (27-33); Mean Corpuscular Hgb Conc 33.8 g/dL (31-36); Mean Corpuscular Volume 83.9 fL (80-97); Mean Platelet Volume 9.7 fL (7.5-11.2); Nucleated Red Blood Cells % 0.1 /100 WBC (0.0-0.4); Platelet Count 54 10^3/uL (150-450); Red Blood Count 2.98 10^6/uL (4.06-5.63); Red Cell Distribution Width 21.8 % (12-17); White Blood Count 3.7 10^3/uL (3.6-10.2)
[2023-08-16 05:58] LABS: Albumin 2.4 g/dL (3.2-5.2); Calcium 7.5 mg/dL (8.6-10.3); Magnesium 1.7 mg/dL (1.9-2.7); Potassium 3.4 mmol/L (3.5-5.0); Total Bilirubin 1.3 mg/dL (0.2-1.0)
[2023-08-16 06:04] LABS: Albumin/Globulin Ratio 0.7 (1-3); Creatinine, Serum 0.98 mg/dL (0.67-1.17); Globulin 3.3 g/dL (2-4); Phosphorus 4.9 mg/dL (2.5-5.0); Total Protein 5.7 g/dL (6.4-8.9); eGFR CKD-EPI 92.2 (>60)
[2023-08-16] MEDS: Epleronone 25 mg TAB (NF) PO SCH ×2 (07:51→21:48)
[2023-08-16] MEDS: Lactulose 30 ml UDC NG TUBE SCH ×2 (07:52→12:49)
[2023-08-16] MEDS: LEVOCARNITINE 330 MG PO SCH ×2 (08:13→16:45)
[2023-08-16] MEDS ORDERED: Magnesium Sulfate IV 3 GM in NS 0.9% 100 ml BAG 100 ML IVPB ONE (09:13)
[2023-08-16] MEDS ORDERED: Potassium Chlor 20 meq TAB.ER PO ONE (09:13)
[2023-08-16] MEDS: cefTRIAXone 1 gm/50 mL D5W 1 GM/50 ML BAG IV SCH (12:43)
[2023-08-16] MEDS: Lactulose 30 ml UDC PO SCH ×3 (12:59→21:31)
[2023-08-16] MEDS: Enoxaparin 40 MG/0.4 ML SYR SUBCUT SCH (16:44)
[2023-08-16] MEDS ORDERED: TADALAFIL 20 MG PO SCH (21:00)
[2023-08-17] MEDS ORDERED: Al Hydrox/Mg Hydrox/Simet LIQ 30 ML UDC PO ONE (04:01)
[2023-08-17 04:57] LABS: ABS Basophils 0.1 10^3/uL (0.0-0.1); ABS Eosinophils 0.3 10^3/uL (0.0-0.5); ABS Lymphocytes 0.9 10^3/uL (1.0-4.8); ABS Neutrophils 5.7 10^3/uL (1.5-7.6); ABS Nucleated RBC 0.01 10^3/ul; Eosinophil % 3.2 %; Hematocrit 27.5 % (38-53); Hemoglobin 9.2 g/dL (13.2-16.3); Lymphocyte % 11.9 %; Mean Corpuscular Hemoglobin 28.1 pg (27-33); Mean Corpuscular Hgb Conc 33.4 g/dL (31-36); Mean Corpuscular Volume 84.1 fL (80-97); Mean Platelet Volume 9.3 fL (7.5-11.2); Nucleated Red Blood Cells % 0.1 /100 WBC (0.0-0.4); Platelet Count 76 10^3/uL (150-450); Red Blood Count 3.26 10^6/uL (4.06-5.63); Red Cell Distribution Width 21.6 % (12-17); White Blood Count 7.9 10^3/uL (3.6-10.2)
[2023-08-17 05:02] LABS: Albumin 2.6 g/dL (3.2-5.2); Albumin/Globulin Ratio 0.8 (1-3); Calcium 7.1 mg/dL (8.6-10.3); Creatinine, Serum 0.84 mg/dL (0.67-1.17); Globulin 3.3 g/dL (2-4); Magnesium 1.7 mg/dL (1.9-2.7); Phosphorus 3.4 mg/dL (2.5-5.0); Potassium 3.3 mmol/L (3.5-5.0); Total Bilirubin 1.6 mg/dL (0.2-1.0); Total Protein 5.9 g/dL (6.4-8.9); eGFR CKD-EPI 104.3 (>60)
[2023-08-17] MEDS ORDERED: Magnesium Sulfate IV 3 GM in NS 0.9% 100 ml BAG 100 ML IVPB ONE (07:17)
[2023-08-17] MEDS ORDERED: Potassium Chlor 20 meq TAB.ER PO ONE (07:18)
[2023-08-17] MEDS: SPIRIVA Respimat (tiotropium) 2.5 mcg/inh Inhaler INH SCH (07:54)
[2023-08-17] MEDS: Epleronone 25 mg TAB (NF) PO SCH ×2 (08:02→21:11)
[2023-08-17] MEDS: Lactulose 30 ml UDC PO SCH ×4 (09:02→21:12)
[2023-08-17] MEDS: LEVOCARNITINE 330 MG PO SCH ×2 (09:35→16:34)
[2023-08-17] MEDS: cefTRIAXone 1 gm/50 mL D5W 1 GM/50 ML BAG IV SCH (11:42)
[2023-08-17] MEDS: Enoxaparin 40 MG/0.4 ML SYR SUBCUT SCH (15:19)
[2023-08-17] MEDS: Insulin GLARGINE 100 un/ml 10 ml VIAL SUBCUT SCH (21:11)
[2023-08-17] MEDS: PTO:Tadalafil 20 mg TAB (NF) PO SCH (21:13)
[2023-08-18 04:49] LABS: INR 1.62 (0.83-1.13)
[2023-08-18 05:03] LABS: ABS Eosinophils 0.3 10^3/uL (0.0-0.5); ABS Monocytes 0.9 10^3/uL (0.0-1.1); ABS Neutrophils 4.1 10^3/uL (1.5-7.6); ABS Nucleated RBC 0.01 10^3/ul; Eosinophil % 4.8 %; Hematocrit 26.2 % (38-53); Hemoglobin 8.9 g/dL (13.2-16.3); Mean Corpuscular Hemoglobin 28.8 pg (27-33); Mean Corpuscular Hgb Conc 33.8 g/dL (31-36); Mean Corpuscular Volume 85.3 fL (80-97); Mean Platelet Volume 8.9 fL (7.5-11.2); Nucleated Red Blood Cells % 0.2 /100 WBC (0.0-0.4); Platelet Count 66 10^3/uL (150-450); Red Blood Count 3.08 10^6/uL (4.06-5.63); Red Cell Distribution Width 21.9 % (12-17); White Blood Count 6.4 10^3/uL (3.6-10.2)
[2023-08-18] MEDS ORDERED: Potassium Chlor 20 meq TAB.ER PO ONE ×2 (07:16→09:26)
[2023-08-18] MEDS ORDERED: Magnesium Sulfate IV 3 GM in NS 0.9% 100 ml BAG 100 ML IVPB ONE (07:16)
[2023-08-18] MEDS: SPIRIVA Respimat (tiotropium) 2.5 mcg/inh Inhaler INH SCH (07:27)
[2023-08-18 08:19] LABS: Albumin 2.6 g/dL (3.2-5.2); Albumin/Globulin Ratio 0.8 (1-3); Calcium 7.3 mg/dL (8.6-10.3); Creatinine, Serum 0.85 mg/dL (0.67-1.17); Globulin 3.4 g/dL (2-4); Magnesium 1.7 mg/dL (1.9-2.7); Potassium 2.9 mmol/L (3.5-5.0); eGFR CKD-EPI 103.9 (>60)
[2023-08-18] MEDS: LEVOCARNITINE 330 MG PO SCH ×2 (09:08→16:02)
[2023-08-18] MEDS: Epleronone 25 mg TAB (NF) PO SCH ×2 (09:08→20:41)
[2023-08-18] MEDS: Lactulose 30 ml UDC PO SCH ×4 (09:09→20:37)
[2023-08-18] MEDS: cefTRIAXone 1 gm/50 mL D5W 1 GM/50 ML BAG IV SCH (12:04)
[2023-08-18] MEDS ORDERED: TREPROSTINIL SODIUM SCH (16:00)
[2023-08-18] MEDS: Enoxaparin 40 MG/0.4 ML SYR SUBCUT SCH (16:02)
[2023-08-18] MEDS: Morphine 4 MG/ML VIAL (1 ml) IV PRN ×2 (17:31→23:15)
[2023-08-18] MEDS: Insulin GLARGINE 100 un/ml 10 ml VIAL SUBCUT SCH (20:36)
[2023-08-18] MEDS: PTO:Tadalafil 20 mg TAB (NF) PO SCH (20:43)
[2023-08-19 04:39] LABS: ABS Basophils 0.1 10^3/uL (0.0-0.1); ABS Eosinophils 0.3 10^3/uL (0.0-0.5); ABS Lymphocytes 0.9 10^3/uL (1.0-4.8); ABS Nucleated RBC 0.01 10^3/ul; Eosinophil % 5.2 %; Hemoglobin 9.1 g/dL (13.2-16.3); Lymphocyte % 14.6 %; Mean Corpuscular Hemoglobin 28.6 pg (27-33); Mean Corpuscular Hgb Conc 33.7 g/dL (31-36); Mean Platelet Volume 8.3 fL (7.5-11.2); Nucleated Red Blood Cells % 0.2 /100 WBC (0.0-0.4); Platelet Count 64 10^3/uL (150-450); Red Blood Count 3.18 10^6/uL (4.06-5.63); Red Cell Distribution Width 22.4 % (12-17); White Blood Count 6.2 10^3/uL (3.6-10.2)
[2023-08-19 04:53] LABS: Albumin 2.7 g/dL (3.2-5.2); Albumin/Globulin Ratio 0.8 (1-3); Calcium 7.3 mg/dL (8.6-10.3); Creatinine, Serum 0.73 mg/dL (0.67-1.17); Globulin 3.4 g/dL (2-4); Magnesium 1.7 mg/dL (1.9-2.7); Potassium 3.3 mmol/L (3.5-5.0); Total Bilirubin 1.8 mg/dL (0.2-1.0); Total Protein 6.1 g/dL (6.4-8.9); eGFR CKD-EPI 108.8 (>60)
[2023-08-19] MEDS: SPIRIVA Respimat (tiotropium) 2.5 mcg/inh Inhaler INH SCH (07:35)
[2023-08-19] MEDS: Potassium Chlor 20 meq TAB.ER PO SCH ×2 (08:29→21:04)
[2023-08-19] MEDS ORDERED: Magnesium Sulfate IV 3 GM in NS 0.9% 100 ml BAG 100 ML IVPB ONE (08:30)
[2023-08-19] MEDS ORDERED: Influenza vaccine *QUAD* *2023-24* 0.5 ML SYRINGE IM ONE (09:00)
[2023-08-19] MEDS: Lactulose 30 ml UDC PO SCH ×4 (09:03→21:05)
[2023-08-19] MEDS: Epleronone 25 mg TAB (NF) PO SCH ×2 (09:12→21:04)
[2023-08-19] MEDS: LEVOCARNITINE 330 MG PO SCH ×3 (09:17→16:43)
[2023-08-19] MEDS: Morphine 4 MG/ML VIAL (1 ml) IV PRN ×4 (10:22→23:48)
[2023-08-19] MEDS ORDERED: PEG 3000 GI LAVAGE 1 GALLON PO ONE (14:42)
[2023-08-19] MEDS ORDERED: Enoxaparin 40 MG/0.4 ML SYR SUBCUT SCH (16:00)
[2023-08-19] MEDS: Lidocaine PATCH 5% PATCH TRANSDERM SCH (19:36)
[2023-08-19] MEDS: PTO:Tadalafil 20 mg TAB (NF) PO SCH (21:05)
[2023-08-19] MEDS: Insulin GLARGINE 100 un/ml 10 ml VIAL SUBCUT SCH (21:05)
[2023-08-20] MEDS: Morphine 4 MG/ML VIAL (1 ml) IV PRN ×2 (04:04→21:27)
[2023-08-20 04:21] LABS: ABS Basophils 0.1 10^3/uL (0.0-0.1); ABS Eosinophils 0.3 10^3/uL (0.0-0.5); ABS Monocytes 1.4 10^3/uL (0.0-1.1); ABS Neutrophils 5.8 10^3/uL (1.5-7.6); Eosinophil % 3.5 %; Hematocrit 27.5 % (38-53); Hemoglobin 9.3 g/dL (13.2-16.3); Lymphocyte % 12.1 %; Mean Corpuscular Hemoglobin 28.6 pg (27-33); Mean Corpuscular Hgb Conc 33.7 g/dL (31-36); Mean Corpuscular Volume 84.9 fL (80-97); Mean Platelet Volume 8.6 fL (7.5-11.2); Platelet Count 73 10^3/uL (150-450); Red Blood Count 3.24 10^6/uL (4.06-5.63); Red Cell Distribution Width 22.3 % (12-17); White Blood Count 8.5 10^3/uL (3.6-10.2)
[2023-08-20 04:39] LABS: Calcium 7.5 mg/dL (8.6-10.3); Creatinine, Serum 0.96 mg/dL (0.67-1.17); Magnesium 1.7 mg/dL (1.9-2.7); eGFR CKD-EPI 94.5 (>60)
[2023-08-20] MEDS ORDERED: Magnesium Sulf 4 GM/100 ML IV 4,000 MG/100 ML BAG IVPB ONE (04:43)
[2023-08-20] MEDS: SPIRIVA Respimat (tiotropium) 2.5 mcg/inh Inhaler INH SCH (07:17)
[2023-08-20] MEDS: Epleronone 25 mg TAB (NF) PO SCH ×2 (08:39→20:40)
[2023-08-20] MEDS: Lactulose 30 ml UDC PO SCH ×3 (08:41→17:39)
[2023-08-20] MEDS: Lidocaine PATCH 5% PATCH TRANSDERM SCH (08:41)
[2023-08-20] MEDS: LEVOCARNITINE 330 MG PO SCH ×2 (09:52→18:35)
[2023-08-20] MEDS ORDERED: Propofol 10 MG/ML 20 ML BTL ONE ×2 (15:22)
[2023-08-20] MEDS ORDERED: Midazolam 2 mg/2 ml VIAL 1 mg/ml 2 ml VIAL (2 mg) ONE (15:22)
[2023-08-20] MEDS ORDERED: Phenylephrine 40 mcg/mL 10mL (400mcg) SYRINGE ONE (15:34)
[2023-08-20] MEDS ORDERED: fentaNYL 100 mcg/2 ml 50 MCG/ML VIAL ONE (18:13)
[2023-08-20] MEDS: Insulin GLARGINE 100 un/ml 10 ml VIAL SUBCUT SCH (20:40)
[2023-08-20] MEDS: PTO:Tadalafil 20 mg TAB (NF) PO SCH (20:41)
[2023-08-21] MEDS: Morphine 4 MG/ML VIAL (1 ml) IV PRN (01:15)
[2023-08-21] MEDS ORDERED: Lorazepam PYXIS KEY PRN (02:27)
[2023-08-21] MEDS ORDERED: LORazepam 2 mg VIAL 1 ml IV PUSH ONE (02:28)
[2023-08-21 05:05] LABS: ABS Basophils 0.1 10^3/uL (0.0-0.1); ABS Eosinophils 0.1 10^3/uL (0.0-0.5); ABS Lymphocytes 0.5 10^3/uL (1.0-4.8); ABS Monocytes 0.7 10^3/uL (0.0-1.1); ABS Neutrophils 3.2 10^3/uL (1.5-7.6); ABS Nucleated RBC 0.01 10^3/ul; Eosinophil % 2.3 %; Hematocrit 24.6 % (38-53); Hemoglobin 8.2 g/dL (13.2-16.3); Lymphocyte % 11.9 %; Mean Corpuscular Hemoglobin 28.3 pg (27-33); Mean Corpuscular Hgb Conc 33.4 g/dL (31-36); Mean Corpuscular Volume 84.7 fL (80-97); Mean Platelet Volume 8.6 fL (7.5-11.2); Nucleated Red Blood Cells % 0.3 /100 WBC (0.0-0.4); Platelet Count 52 10^3/uL (150-450); Red Blood Count 2.91 10^6/uL (4.06-5.63); Red Cell Distribution Width 21.8 % (12-17); White Blood Count 4.6 10^3/uL (3.6-10.2)
[2023-08-21 05:17] LABS: Calcium 7.3 mg/dL (8.6-10.3); Creatinine, Serum 0.75 mg/dL (0.67-1.17); Magnesium 1.7 mg/dL (1.9-2.7); Potassium 3.7 mmol/L (3.5-5.0); eGFR CKD-EPI 107.9 (>60)
[2023-08-21] MEDS ORDERED: Magnesium Sulfate IV 3 GM in NS 0.9% 100 ml BAG 100 ML IVPB ONE (07:01)
[2023-08-21] MEDS ORDERED: Potassium Chlor 20 meq TAB.ER PO ONE (07:02)
[2023-08-21] MEDS: LEVOCARNITINE 330 MG PO SCH (07:53)
[2023-08-21] MEDS: SPIRIVA Respimat (tiotropium) 2.5 mcg/inh Inhaler INH SCH (08:41)
[2023-08-21] MEDS ORDERED: Enoxaparin 40 MG/0.4 ML SYR SUBCUT SCH (09:00)
[2023-08-21] MEDS: Lidocaine PATCH 5% PATCH TRANSDERM SCH (09:43)
[2023-08-21] MEDS: Epleronone 25 mg TAB (NF) PO SCH (11:10)
[2023-08-21 13:04] VITALS: BP 133/65
== END 2023-08-21 14:43 | disposition home or self-care (01) | DRG 280 ==
LOC: ICU 10:47 → SUATTDRO 10:47
PROVIDERS: ADMIT Internal Medicine; ATTEND Internal Medicine Critical Care Medicine

== ENCOUNTER 2023-10-18 09:52 | Inpatient (IN) ==
[2023-10-18] MEDS ORDERED: Haloperidol 5 mg/ml SDV IV/IM 5 MG/ML AMP IM ONE ×2 (10:19→10:55)
[2023-10-18] MEDS ORDERED: Haloperidol 5 mg/ml SDV IV/IM 5 MG/ML AMP ONE ×2 (10:19→18:52)
[2023-10-18 12:09] LABS: Activated Partial Thrombo Time 32.8 seconds (26.0-38.0); INR 1.67 (0.83-1.13)
[2023-10-18 12:20] LABS: High Sens Troponin Baseline 9 pg/mL (<20)
[2023-10-18 12:25] LABS: Hematocrit 29.6 % (38-53); Hemoglobin 9.8 g/dL (13.2-16.3); Mean Corpuscular Hemoglobin 26.3 pg (27-33); Mean Corpuscular Hgb Conc 32.9 g/dL (31-36); Mean Corpuscular Volume 79.9 fL (80-97); Mean Platelet Volume 8.3 fL (7.5-11.2); Platelet Count 59 10^3/uL (150-450); Red Blood Count 3.71 10^6/uL (4.06-5.63); Red Cell Distribution Width 21.3 % (12-17); White Blood Count 4.3 10^3/uL (3.6-10.2)
[2023-10-18 12:38] LABS: ALT 27 U/L (7-52); Albumin 3.1 g/dL (3.2-5.2); Albumin/Globulin Ratio 0.9 (1-3); Alkaline Phosphatase 175 U/L (35-149); Anion Gap 12 mmol/L (2-16); Blood Urea Nitrogen 12 mg/dL (6-24); C Reactive Protein 8.94 mg/L (<8.01); CO2 Carbon Dioxide 20 mmol/L (22-32); Calcium 8.1 mg/dL (8.6-10.3); Chloride 109 mmol/L (101-111); Creatinine, Serum 1.03 mg/dL (0.67-1.17); Globulin 3.3 g/dL (2-4); Glucose 132 mg/dL (70-100); Sodium 141 mmol/L (135-145); Total Protein 6.4 g/dL (6.4-8.9); eGFR CKD-EPI 86.9 (>60)
[2023-10-18] MEDS ORDERED: Lactulose 30 ml UDC PO ONE (12:45)
[2023-10-18 13:51] LABS: ABS Lymphocytes 0.5 10^3/uL (1.0-4.8); ABS Monocytes 0.5 10^3/uL (0.0-1.1); ABS Neutrophils 3.3 10^3/uL (1.5-7.6); Eosinophil % 0.9 %; Lymphocyte % 11.8 %; Nucleated Red Blood Cells % 0.1 %/100WBC (0.0-0.8)
[2023-10-18 13:54] LABS: Direct Bilirubin Redraw 0.3 mg/dL (0.1-0.5); Potassium Redraw 3.1 mmol/L (3.5-5.0)
[2023-10-18] MEDS ORDERED: Dexmedetomidine 1,000 MCG in NS 0.9% 250 ml 240 ML IV SCH (16:00)
[2023-10-18] MEDS ORDERED: Albuterol HFA INHALER 8 gm MDI INH PRN (19:21)
[2023-10-18] MEDS ORDERED: Haloperidol 5 mg/ml SDV IV/IM 5 MG/ML AMP IV SLOW PU ONE (19:30)
[2023-10-18] MEDS ORDERED: Norepinephrine 4 MG/250mL D5W 4,000 MCG/250 ML BAG IV SCH (23:00)
[2023-10-19 04:41] LABS: ABS Eosinophils 0.1 10^3/uL (0.0-0.5); ABS Lymphocytes 0.5 10^3/uL (1.0-4.8); ABS Monocytes 0.4 10^3/uL (0.0-1.1); ABS Neutrophils 2.9 10^3/uL (1.5-7.6); Eosinophil % 1.8 %; Hemoglobin 9.6 g/dL (13.2-16.3); Lymphocyte % 12.9 %; Mean Corpuscular Hemoglobin 26.8 pg (27-33); Mean Corpuscular Hgb Conc 33.1 g/dL (31-36); Mean Corpuscular Volume 80.9 fL (80-97); Mean Platelet Volume 8.8 fL (7.5-11.2); Nucleated Red Blood Cells % 0.1 %/100WBC (0.0-0.8); Platelet Count 54 10^3/uL (150-450); Red Blood Count 3.59 10^6/uL (4.06-5.63); Red Cell Distribution Width 21.6 % (12-17); White Blood Count 3.9 10^3/uL (3.6-10.2)
[2023-10-19 04:53] LABS: Albumin 2.8 g/dL (3.2-5.2); Albumin/Globulin Ratio 0.9 (1-3); Calcium 8.3 mg/dL (8.6-10.3); Creatinine, Serum 0.99 mg/dL (0.67-1.17); Globulin 3.2 g/dL (2-4); Potassium 3.8 mmol/L (3.5-5.0); Total Bilirubin 2.5 mg/dL (0.2-1.0); eGFR CKD-EPI 91.1 (>60)
[2023-10-19 05:28] LABS: INR 1.83 (0.83-1.13)
[2023-10-19] MEDS: SPIRIVA Respimat (tiotropium) 2.5 mcg/inh Inhaler INH SCH (07:42)
[2023-10-19] MEDS: LEVOCARNITINE 330 MG PO SCH ×3 (08:03→20:30)
[2023-10-19] MEDS: TADALAFIL 20 MG PO SCH ×2 (08:03→20:29)
[2023-10-19] MEDS ORDERED: ZOSYN 3.375 GM x ONE DOSE over 30 miuntes IV (11:00)
[2023-10-19] MEDS ORDERED: Zosyn per Pharmacy NOTE FOLLOW UP SCH (11:00)
[2023-10-19] MEDS ORDERED: Dextrose 50% Syringe 50 ml 25 GM/50 ML SYRINGE IV PUSH PRN (14:01)
[2023-10-19] MEDS: ZOSYN 3.375 GM Q8H per EXTENDED INFUSION IV SCH ×2 (14:38→23:36)
[2023-10-19] MEDS ORDERED: TREPROSTINIL SODIUM SCH (16:00)
[2023-10-19 16:59] LABS: Urine Appearance Cloudy; Urine Bilirubin Negative (Negative); Urine Blood Negative (Negative); Urine Color Amber; Urine Glucose Negative (Negative); Urine Ketones Negative (Negative); Urine Nitrite Negative (Negative); Urine Protein Negative (Negative); Urine Specific Gravity 1.019 (1.002-1.030); Urine Urobilinogen Negative (Negative)
[2023-10-19] MEDS ORDERED: Enoxaparin 40 MG/0.4 ML SYR SUBCUT SCH (22:00)
[2023-10-20 04:54] LABS: ABS Eosinophils 0.1 10^3/uL (0.0-0.5); ABS Lymphocytes 0.5 10^3/uL (1.0-4.8); ABS Monocytes 0.4 10^3/uL (0.0-1.1); ABS Neutrophils 2.7 10^3/uL (1.5-7.6); ABS Nucleated RBC 0.01 10^3/ul; Eosinophil % 2.7 %; Hematocrit 25.1 % (38-53); Lymphocyte % 14.5 %; Mean Corpuscular Hemoglobin 25.8 pg (27-33); Mean Corpuscular Hgb Conc 32.1 g/dL (31-36); Mean Corpuscular Volume 80.5 fL (80-97); Mean Platelet Volume 8.2 fL (7.5-11.2); Nucleated Red Blood Cells % 0.3 %/100WBC (0.0-0.8); Platelet Count 21 10^3/uL (150-450); Red Blood Count 3.11 10^6/uL (4.06-5.63); Red Cell Distribution Width 21.3 % (12-17); White Blood Count 3.8 10^3/uL (3.6-10.2)
[2023-10-20 04:58] LABS: Albumin 2.5 g/dL (3.2-5.2); Albumin/Globulin Ratio 0.9 (1-3); Calcium 7.7 mg/dL (8.6-10.3); Creatinine, Serum 1.71 mg/dL (0.67-1.17); Globulin 2.9 g/dL (2-4); Magnesium 1.7 mg/dL (1.9-2.7); Potassium 3.6 mmol/L (3.5-5.0); Total Protein 5.4 g/dL (6.4-8.9); eGFR CKD-EPI 47.3 (>60)
[2023-10-20] MEDS: ZOSYN 3.375 GM Q8H per EXTENDED INFUSION IV SCH ×3 (06:02→23:40)
[2023-10-20] MEDS: LEVOCARNITINE 330 MG PO SCH ×2 (08:10→20:49)
[2023-10-20] MEDS: SPIRIVA Respimat (tiotropium) 2.5 mcg/inh Inhaler INH SCH (09:09)
[2023-10-20] MEDS ORDERED: CMCS:Epleronone 25 mg TAB (NF) PO SCH (12:00)
[2023-10-20] MEDS: CMCS:Epleronone 25 mg TAB (NF) PO SCH (14:27)
[2023-10-20 17:36] LABS: Albumin 2.8 g/dL (3.2-5.2); Albumin/Globulin Ratio 0.8 (1-3); Calcium 7.8 mg/dL (8.6-10.3); Creatinine, Serum 1.67 mg/dL (0.67-1.17); Globulin 3.3 g/dL (2-4); Potassium 3.8 mmol/L (3.5-5.0); Total Bilirubin 1.9 mg/dL (0.2-1.0); Total Protein 6.1 g/dL (6.4-8.9); eGFR CKD-EPI 48.6 (>60)
[2023-10-20] MEDS: TADALAFIL 20 MG PO SCH (20:49)
[2023-10-21 06:18] LABS: ABS Eosinophils 0.1 10^3/uL (0.0-0.5); ABS Lymphocytes 0.5 10^3/uL (1.0-4.8); ABS Monocytes 1.1 10^3/uL (0.0-1.1); ABS Neutrophils 5.7 10^3/uL (1.5-7.6); ABS Nucleated RBC 0.02 10^3/ul; Eosinophil % 1.4 %; Hematocrit 20.3 % (38-53); Hemoglobin 6.3 g/dL (13.2-16.3); Mean Corpuscular Hemoglobin 26.4 pg (27-33); Mean Corpuscular Hgb Conc 31.1 g/dL (31-36); Mean Corpuscular Volume 84.8 fL (80-97); Nucleated Red Blood Cells % 0.3 %/100WBC (0.0-0.8); Platelet Count 60 10^3/uL (150-450); Red Blood Count 2.39 10^6/uL (4.06-5.63); Red Cell Distribution Width 21.1 % (12-17); White Blood Count 7.5 10^3/uL (3.6-10.2)
[2023-10-21 06:49] LABS: Hematocrit 30.7 % (38-53); Hemoglobin 9.9 g/dL (13.2-16.3); Mean Corpuscular Hemoglobin 26.2 pg (27-33); Mean Corpuscular Hgb Conc 32.3 g/dL (31-36); Mean Corpuscular Volume 81.1 fL (80-97); Mean Platelet Volume 8.7 fL (7.5-11.2); Platelet Count 111 10^3/uL (150-450); Red Blood Count 3.78 10^6/uL (4.06-5.63); Red Cell Distribution Width 21.2 % (12-17); White Blood Count 11.8 10^3/uL (3.6-10.2)
[2023-10-21 07:21] LABS: ALT 19 U/L (7-52); Albumin 2.4 g/dL (3.2-5.2); Albumin/Globulin Ratio 0.7 (1-3); Alkaline Phosphatase 114 U/L (35-149); Anion Gap 20 mmol/L (2-16); Blood Urea Nitrogen 23 mg/dL (6-24); CO2 Carbon Dioxide 14 mmol/L (22-32); Calcium 6.5 mg/dL (8.6-10.3); Chloride 102 mmol/L (101-111); Globulin 3.4 g/dL (2-4); Glucose 132 mg/dL (70-100); Magnesium 1.4 mg/dL (1.9-2.7); Sodium 136 mmol/L (135-145); Total Bilirubin 1.9 mg/dL (0.2-1.0); Total Protein 5.8 g/dL (6.4-8.9); eGFR CKD-EPI 60.1 (>60)
[2023-10-21] MEDS: SPIRIVA Respimat (tiotropium) 2.5 mcg/inh Inhaler INH SCH (07:30)
[2023-10-21 08:05] LABS: ABS Eosinophils 0.2 10^3/uL (0.0-0.5); ABS Lymphocytes 0.8 10^3/uL (1.0-4.8); ABS Monocytes 1.8 10^3/uL (0.0-1.1); ABS Nucleated RBC 0.02 10^3/ul; Eosinophil % 1.4 %; Lymphocyte % 6.8 %; Nucleated Red Blood Cells % 0.2 %/100WBC (0.0-0.8)
[2023-10-21] MEDS: ZOSYN 3.375 GM Q8H per EXTENDED INFUSION IV SCH ×3 (08:20→23:34)
[2023-10-21] MEDS ORDERED: Magnesium Sulfate 2 gm BAG 2 GM/50 ML BAG IVPB ONE (08:21)
[2023-10-21 08:35] LABS: ABS Eosinophils 0.1 10^3/uL (0.0-0.5); ABS Lymphocytes 0.6 10^3/uL (1.0-4.8); ABS Monocytes 1.6 10^3/uL (0.0-1.1); ABS Neutrophils 8.4 10^3/uL (1.5-7.6); ABS Nucleated RBC 0.02 10^3/ul; Eosinophil % 1.1 %; Hematocrit 29.5 % (38-53); Hemoglobin 9.5 g/dL (13.2-16.3); Lymphocyte % 5.8 %; Mean Corpuscular Hemoglobin 26.3 pg (27-33); Mean Corpuscular Hgb Conc 32.3 g/dL (31-36); Mean Corpuscular Volume 81.5 fL (80-97); Mean Platelet Volume 8.2 fL (7.5-11.2); Nucleated Red Blood Cells % 0.2 %/100WBC (0.0-0.8); Platelet Count 85 10^3/uL (150-450); Red Blood Count 3.62 10^6/uL (4.06-5.63); Red Cell Distribution Width 21.4 % (12-17); White Blood Count 10.8 10^3/uL (3.6-10.2)
[2023-10-21 08:38] LABS: Albumin 2.7 g/dL (3.2-5.2); Albumin/Globulin Ratio 0.9 (1-3); Calcium 7.5 mg/dL (8.6-10.3); Creatinine, Serum 1.59 mg/dL (0.67-1.17); Globulin 3.1 g/dL (2-4); Potassium 3.9 mmol/L (3.5-5.0); Total Bilirubin 2.1 mg/dL (0.2-1.0); Total Protein 5.8 g/dL (6.4-8.9); eGFR CKD-EPI 51.6 (>60)
[2023-10-21] MEDS: Lidocaine PATCH 5% PATCH TRANSDERM SCH (09:22)
[2023-10-21] MEDS: CMCS:Epleronone 25 mg TAB (NF) PO SCH (09:45)
[2023-10-21] MEDS: LEVOCARNITINE 330 MG PO SCH ×2 (09:46→19:40)
[2023-10-21] MEDS ORDERED: Ondansetron 4 mg VIAL 2 MG/ML 2 ml VIAL IV PRN (09:54)
[2023-10-21] MEDS ORDERED: Ondansetron 4 mg VIAL 2 MG/ML 2 ml VIAL ONE (09:54)
[2023-10-21] MEDS: HYDROmorphone 1 MG/1 ML SYRINGE IV SLOW PU PRN ×2 (13:35→19:45)
[2023-10-21] MEDS: TADALAFIL 20 MG PO SCH (19:37)
[2023-10-22 06:15] LABS: ABS Eosinophils 0.1 10^3/uL (0.0-0.5); ABS Lymphocytes 0.6 10^3/uL (1.0-4.8); ABS Monocytes 1.9 10^3/uL (0.0-1.1); ABS Neutrophils 9.5 10^3/uL (1.5-7.6); ABS Nucleated RBC 0.01 10^3/ul; Eosinophil % 0.7 %; Hematocrit 29.8 % (38-53); Hemoglobin 9.7 g/dL (13.2-16.3); Lymphocyte % 5.2 %; Mean Corpuscular Hemoglobin 26.5 pg (27-33); Mean Corpuscular Hgb Conc 32.7 g/dL (31-36); Mean Corpuscular Volume 81.2 fL (80-97); Mean Platelet Volume 8.8 fL (7.5-11.2); Nucleated Red Blood Cells % 0.1 %/100WBC (0.0-0.8); Platelet Count 93 10^3/uL (150-450); Red Blood Count 3.67 10^6/uL (4.06-5.63); Red Cell Distribution Width 20.8 % (12-17); White Blood Count 12.1 10^3/uL (3.6-10.2)
[2023-10-22] MEDS: ZOSYN 3.375 GM Q8H per EXTENDED INFUSION IV SCH ×3 (06:21→23:18)
[2023-10-22 06:36] LABS: ALT 23 U/L (7-52); Albumin 2.9 g/dL (3.2-5.2); Albumin/Globulin Ratio 0.9 (1-3); Alkaline Phosphatase 114 U/L (35-149); Anion Gap 6 mmol/L (2-16); Blood Urea Nitrogen 28 mg/dL (6-24); CO2 Carbon Dioxide 21 mmol/L (22-32); Calcium 7.9 mg/dL (8.6-10.3); Chloride 98 mmol/L (101-111); Creatinine, Serum 1.71 mg/dL (0.67-1.17); Globulin 3.2 g/dL (2-4); Glucose 139 mg/dL (70-100); Magnesium 1.6 mg/dL (1.9-2.7); Sodium 125 mmol/L (135-145); Total Bilirubin 2.2 mg/dL (0.2-1.0); Total Protein 6.1 g/dL (6.4-8.9); eGFR CKD-EPI 47.3 (>60)
[2023-10-22] MEDS: SPIRIVA Respimat (tiotropium) 2.5 mcg/inh Inhaler INH SCH (07:47)
[2023-10-22] MEDS: CMCS:Epleronone 25 mg TAB (NF) PO SCH (09:13)
[2023-10-22] MEDS: Lidocaine PATCH 5% PATCH TRANSDERM SCH (09:22)
[2023-10-22] MEDS: LEVOCARNITINE 330 MG PO SCH ×2 (09:22→20:02)
[2023-10-22] MEDS: HYDROmorphone 1 MG/1 ML SYRINGE IV SLOW PU PRN ×3 (11:41→20:00)
[2023-10-22] MEDS: TADALAFIL 20 MG PO SCH (20:01)
[2023-10-23] MEDS: HYDROmorphone 1 MG/1 ML SYRINGE IV SLOW PU PRN ×2 (06:21→15:57)
[2023-10-23] MEDS: ZOSYN 3.375 GM Q8H per EXTENDED INFUSION IV SCH (06:24)
[2023-10-23] MEDS: SPIRIVA Respimat (tiotropium) 2.5 mcg/inh Inhaler INH SCH (08:04)
[2023-10-23] MEDS: CMCS:Epleronone 25 mg TAB (NF) PO SCH (09:48)
[2023-10-23] MEDS: LEVOCARNITINE 330 MG PO SCH ×2 (09:49→21:16)
[2023-10-23] MEDS: Lidocaine PATCH 5% PATCH TRANSDERM SCH (09:57)
[2023-10-23] MEDS: TADALAFIL 20 MG PO SCH (21:16)
[2023-10-24] MEDS: HYDROmorphone 1 MG/1 ML SYRINGE IV SLOW PU PRN ×3 (03:45→10:21)
[2023-10-24] MEDS ORDERED: Lorazepam PYXIS KEY PRN (08:38)
[2023-10-24] MEDS ORDERED: LORazepam 2 mg VIAL 1 ml IV PUSH PRN (08:38)
[2023-10-24] MEDS ORDERED: HYDROmorphone PCA 20 MG/20 ML PCA.SYRING PCA SCH (09:00)
[2023-10-24] MEDS: SPIRIVA Respimat (tiotropium) 2.5 mcg/inh Inhaler INH SCH (10:04)
[2023-10-24] MEDS: LEVOCARNITINE 330 MG PO SCH (10:08)
[2023-10-24] MEDS: CMCS:Epleronone 25 mg TAB (NF) PO SCH (10:08)
[2023-10-24] MEDS: Lidocaine PATCH 5% PATCH TRANSDERM SCH (10:09)
[2023-10-25] MEDS: Lidocaine PATCH 5% PATCH TRANSDERM SCH (09:00)
[2023-10-25 11:59] LABS: Hematocrit 24.3 % (38-53); Hemoglobin 8.1 g/dL (13.2-16.3); Mean Corpuscular Hemoglobin 26.9 pg (27-33); Mean Corpuscular Hgb Conc 33.4 g/dL (31-36); Mean Corpuscular Volume 80.5 fL (80-97); Red Blood Count 3.02 10^6/uL (4.06-5.63); Red Cell Distribution Width 21.6 % (12-17); White Blood Count 4.8 10^3/uL (3.6-10.2)
[2023-10-25 12:04] LABS: INR 1.71 (0.83-1.13)
[2023-10-25 12:22] LABS: Albumin 2.5 g/dL (3.2-5.2); Albumin/Globulin Ratio 0.8 (1-3); Calcium 7.2 mg/dL (8.6-10.3); Creatinine, Serum 1.18 mg/dL (0.67-1.17); Magnesium 1.6 mg/dL (1.9-2.7); Potassium 3.5 mmol/L (3.5-5.0); Total Bilirubin 1.9 mg/dL (0.2-1.0); Total Protein 5.5 g/dL (6.4-8.9); eGFR CKD-EPI 73.3 (>60)
[2023-10-25 12:35] LABS: Mean Platelet Volume 8.1 fL (7.5-11.2); Platelet Count 34 10^3/uL (150-450)
[2023-10-25 12:36] LABS: ABS Eosinophils 0.1 10^3/uL (0.0-0.5); ABS Lymphocytes 0.3 10^3/uL (1.0-4.8); ABS Monocytes 0.9 10^3/uL (0.0-1.1); ABS Neutrophils 3.5 10^3/uL (1.5-7.6); Anisocytosis 2+; Eosinophil % 1.2 %; Lymphocyte % 6.7 %; Nucleated Red Blood Cells % 0.1 %/100WBC (0.0-0.8); Polychromasia 1+
[2023-10-25] MEDS: Lactulose 30 ml UDC PO SCH ×3 (13:55→20:49)
[2023-10-25] MEDS ORDERED: LORazepam 2 mg VIAL 1 ml IM PRN (16:17)
[2023-10-25] MEDS ORDERED: Dexmedetomidine 1,000 MCG in NS 0.9% 250 ml 240 ML IV SCH (17:00)
[2023-10-25 19:40] VITALS: BP 111/65
[2023-10-26] MEDS: Lactulose 30 ml UDC PO SCH ×4 (07:29→19:33)
[2023-10-26] MEDS: Lidocaine PATCH 5% PATCH TRANSDERM SCH (07:29)
[2023-10-26] MEDS ORDERED: LORazepam 2 mg VIAL 1 ml IV PUSH SCH (11:00)
[2023-10-27] MEDS: LORazepam 2 mg VIAL 1 ml IV PUSH PRN ×2 (05:06→07:57)
[2023-10-27] MEDS ORDERED: Morphine PCA ADULT 5 MG/ML 30 ML PCA SCH ×3 (09:00→11:32)
[2023-10-27] MEDS ORDERED: LORazepam 2 mg VIAL 1 ml IV PUSH PRN (10:52)
[2023-10-27] MEDS ORDERED: Scopolamine 1 mg/72hr PATCH TRANSDERM SCH (11:00)
[2023-10-27] MEDS: Lidocaine PATCH 5% PATCH TRANSDERM SCH (11:28)
[2023-10-27] MEDS: Lactulose 30 ml UDC PO SCH (11:29)
[2023-10-27] MEDS: LORazepam 2 mg VIAL 1 ml IV PUSH SCH ×2 (11:29→11:30)
[2023-10-27] MEDS: Atropine 1% (ORAL/SL) 15 ML BTL SL PRN ×2 (12:14→18:56)
== END 2023-10-27 19:13 | disposition expired | DRG 279 ==
LOC: ED 09:52 → EDHOLD 17:54 → ICU 18:08
PROVIDERS: ADMIT Student in an Organized Health Care Education/Training Program; ATTEND Surgery Surgical Critical Care